=== PATIENT | female | born 1965 | race Caucasian/White ===

== ENCOUNTER → 2016-12-26 | Outpatient (REF) | payer OTHER | END | disposition home or self-care (01) | LOC: M LAB REF 15:27 | PROVIDERS: ATTEND Family Medicine | DX: R30.0 Dysuria (principal) ==

== ENCOUNTER → 2016-12-30 | Outpatient (RCR) | payer OTHER | LOC: M PT 12-18 14:26 → EDSTATUS 12-18 14:30 → M PT 12-18 14:35 | PROVIDERS: ATTEND Family Medicine | DX: Z51.89 Encounter for other specified aftercare (principal); R20.2 Paresthesia of skin; M54.2 Cervicalgia; M54.5 Low back pain ==

== ENCOUNTER → 2017-01-16 | Outpatient (REF) | payer OTHER | END | disposition home or self-care (01) | LOC: M LAB REF 16:57 | PROVIDERS: ATTEND Physician Assistant | DX: R30.0 Dysuria (principal) ==

== ENCOUNTER 2017-01-26 07:45 | Outpatient (RCR) | payer OTHER | END 2017-01-27 | LOC: M PT 07:45 | PROVIDERS: ATTEND Family Medicine | DX: Z51.89 Encounter for other specified aftercare (principal); M54.2 Cervicalgia; M54.5 Low back pain ==

== ENCOUNTER 2017-02-02 07:00 | Outpatient (RCR) | payer OTHER | END 2017-02-05 19:02 | disposition home or self-care (01) | LOC: M PT 07:00 | PROVIDERS: ATTEND Family Medicine | DX: Z51.89 Encounter for other specified aftercare (principal); M54.2 Cervicalgia ==

== ENCOUNTER → 2017-02-06 | Outpatient (REF) | payer OTHER | LOC: M SMT 16:50 | PROVIDERS: ATTEND Urology | DX: R30.0 Dysuria (principal) ==

== ENCOUNTER → 2017-04-07 | Outpatient (REF) | payer OTHER | LOC: M SMT 14:20 | PROVIDERS: ATTEND Urology | DX: R30.0 Dysuria (principal) ==

== ENCOUNTER → 2017-07-22 | Outpatient (REF) | payer OTHER | LOC: M LAB REF 08:46 | PROVIDERS: ATTEND Physician Assistant | DX: R30.0 Dysuria (principal) ==

== ENCOUNTER → 2017-09-04 | Outpatient (REF) | payer OTHER | LOC: M SFHCWAGY 11:03 | PROVIDERS: ATTEND Nurse Practitioner Family | DX: Z12.4 Encounter for screening for malignant neoplasm of cervix (principal) ==

== ENCOUNTER → 2017-09-04 | Outpatient (CLI) | payer OTHER ==
--- NOTE | 2017-09-04 09:38 | REP ---
Bilateral screening digital mammogram: There are no palpable abnormalities or other breast complaints. The patient states she had a clinical breast exam in August 2017. Comparisons are 01/30/2010, 06/09/2013 and 07/30/2015. There is very dense heterogeneous breast parenchyma, unchanged. There is a stable nodule -like density medially in the left breast on the CC view only, unchanged from 06/09/2013. There are benign calcifications. There has been no interval development of masses, areas of structural distortion or clusters of microcalcifications typical of malignancy. Impression: There is no evidence of malignancy. BIRADS category II benign findings. The patient should have a repeat mammogram in 1 year. This mammogram was interpreted with the aid of an FDA-approved computer-aided detection system. A. Negative x-ray reports should not delay biopsy if a dominant or clinically suspicious mass is present. B. Four to eight percent of cancers are not identified by x-ray. C. Adenosis and dense breasts may obscure an underlying neoplasm. The patient letter being requested is M1 dense.
== END ==
LOC: M WHC 07:53
PROVIDERS: ATTEND Nurse Practitioner Family
DX: Z12.31 Encounter for screening mammogram for malignant neoplasm of breast (principal)

== ENCOUNTER 2017-12-07 07:44 | Outpatient (RCR) | payer OTHER | END 2017-12-30 | disposition home or self-care (01) | LOC: M PT 07:44 | DX: Z51.89 Encounter for other specified aftercare (principal); M54.5 Low back pain ==

== ENCOUNTER → 2018-01-25 | Outpatient (CLI) | payer OTHER ==
[2018-01-25 08:17] LABS: BASO % 0.6 % (0.0-1.0); EOS # 0.1 10^3/uL (0.0-0.50); EOS % 2.3 % (0.0-3.0); HEMATOCRIT 39.1 % (36.0-47.0); HEMOGLOBIN 13.1 g/dl (12.0-16.0); IMMATURE GRANULOCYTE % 0.3 % (0-3.0); LYMPH # 2.5 10^3/uL (1.5-4.5); LYMPH % 40.1 % (24.0-44.0); MEAN CORPUSCULAR HEMOGLOBIN 30.8 pg (27.0-33.0); MEAN CORPUSCULAR HGB CONC 33.5 g/dl (32.0-36.5); MEAN CORPUSCULAR VOLUME 91.8 fl (80.0-96.0); MONO # 0.5 10^3/uL (0.0-0.8); MONO % 7.5 % (0.0-5.0); NEUTROPHILS % 49.2 % (36.0-66.0); PLATELET COUNT, AUTOMATED 217 10^3/uL (150-450); RED BLOOD COUNT 4.26 10^6/uL (4.00-5.40); RED CELL DISTRIBUTION WIDTH 12.5 % (11.5-14.5); WHITE BLOOD COUNT 6.2 10^3/uL (4.0-10.0)
[2018-01-25 08:48] LABS: ALBUMIN 3.9 GM/DL (3.2-5.2); ALBUMIN/GLOBULIN RATIO 1.44 (1.00-1.93); ALKALINE PHOSPHATASE 53 U/L (45-117); ALT/SGPT 23 U/L (12-78); ANION GAP 7 MEQ/L (8-16); AST/SGOT 13 U/L (7-37); BILIRUBIN,TOTAL 0.4 MG/DL (0.2-1.0); BLOOD UREA NITROGEN 14 MG/DL (7-18); CALCIUM LEVEL 8.5 MG/DL (8.5-10.1); CARBON DIOXIDE LEVEL 30 MEQ/L (21-32); CHLORIDE LEVEL 107 MEQ/L (98-107); CHOLESTEROL LEVEL 182 MG/DL (<200); CHOLESTEROL RISK RATIO 2.141 (<5); CREATININE FOR GFR 0.68 MG/DL (0.55-1.30); FREE T4 0.88 NG/DL (0.76-1.46); GLOMERULAR FILTRATION RATE > 60.0 (>51); GLUCOSE, FASTING 103 MG/DL (70-100); HDL CHOLESTEROL 85 MG/DL (>40); LDL CHOLESTEROL 87.8 MG/DL (<100); NON-HDL-C 97 MG/DL; POTASSIUM SERUM 3.9 MEQ/L (3.5-5.1); SODIUM LEVEL 144 MEQ/L (136-145); TOTAL PROTEIN 6.6 GM/DL (6.4-8.2); TRIGLYCERIDES LEVEL 46 MG/DL (<150)
== END ==
LOC: M LAB 07:53
DX: Z13.29 Encounter for screening for other suspected endocrine disorder (principal); Z13.220 Encounter for screening for lipoid disorders; Z13.0 Encounter for screening for diseases of the blood and blood-forming organs and certain disorders involving the immune mechanism

== ENCOUNTER → 2018-03-19 | Outpatient (REF) | payer OTHER | LOC: M LAB REF 13:02 | DX: R30.0 Dysuria (principal) ==

== ENCOUNTER → 2018-08-19 | Outpatient (REF) | payer OTHER | LOC: M LAB REF 17:44 | DX: N39.0 Urinary tract infection, site not specified (principal) ==

== ENCOUNTER → 2018-09-09 | Outpatient (CLI) | payer OTHER | LOC: M WHC 08:01 | DX: Z12.31 Encounter for screening mammogram for malignant neoplasm of breast (principal); N60.31 Fibrosclerosis of right breast; N60.32 Fibrosclerosis of left breast | CPT/HCPCS: G0123 ==

== ENCOUNTER → 2018-09-09 | Outpatient (REF) | payer OTHER ==
[2018-09-11 14:11] LABS: HPV HYBRID CAPTURE II Negative (Negative)
== END ==
LOC: M SFHCWAGY 08:36
DX: Z12.4 Encounter for screening for malignant neoplasm of cervix (principal)

== ENCOUNTER → 2018-09-20 | Outpatient (REF) | payer OTHER | LOC: M LAB REF 18:20 | DX: L57.0 Actinic keratosis (principal) | CPT/HCPCS: 88305 ==

== ENCOUNTER → 2018-12-17 | Outpatient (CLI) | payer OTHER ==
[2018-12-17 07:40] LABS: BASO # 0.1 10^3/uL (0.0-0.2); BASO % 0.8 % (0.0-1.0); EOS # 0.1 10^3/uL (0.0-0.50); EOS % 1.6 % (0.0-3.0); HEMATOCRIT 40.1 % (36.0-47.0); HEMOGLOBIN 13.3 g/dl (12.0-15.5); LYMPH # 2.1 10^3/uL (1.5-4.5); MEAN CORPUSCULAR HEMOGLOBIN 31.1 pg (27.0-33.0); MEAN CORPUSCULAR HGB CONC 33.2 g/dl (32.0-36.5); MEAN CORPUSCULAR VOLUME 93.9 fl (80.0-96.0); MONO # 0.5 10^3/uL (0.0-0.8); MONO % 6.9 % (0.0-5.0); NEUTROPHILS # 4.3 10^3/uL (1.8-7.7); NEUTROPHILS % 61.4 % (36.0-66.0); PLATELET COUNT, AUTOMATED 243 10^3/uL (150-450); RED BLOOD COUNT 4.27 10^6/uL (4.00-5.40); WHITE BLOOD COUNT 7.1 10^3/uL (4.0-10.0)
[2018-12-17 09:00] LABS: ALT/SGPT 29 U/L (12-78); BILIRUBIN,TOTAL 0.4 MG/DL (0.2-1.0); BLOOD UREA NITROGEN 11 MG/DL (7-18); CALCIUM LEVEL 9.2 MG/DL (8.5-10.1); CARBON DIOXIDE LEVEL 28 MEQ/L (21-32); CHLORIDE LEVEL 108 MEQ/L (98-107); CHOLESTEROL LEVEL 190 MG/DL (<200); CHOLESTEROL RISK RATIO 2.087 (<5); CREATININE FOR GFR 0.63 MG/DL (0.55-1.30); FREE T4 1.01 NG/DL (0.76-1.46); GLOMERULAR FILTRATION RATE > 60.0 (>51); GLUCOSE, FASTING 101 MG/DL (70-100); HDL CHOLESTEROL 91 MG/DL (>40); LDL CHOLESTEROL 90 MG/DL (<100); NON-HDL-C 99 MG/DL; POTASSIUM SERUM 3.9 MEQ/L (3.5-5.1); SODIUM LEVEL 143 MEQ/L (136-145); TOTAL PROTEIN 6.7 GM/DL (6.4-8.2); TRIGLYCERIDES LEVEL 44 MG/DL (<150)
== END ==
LOC: M LAB 07:05
PROVIDERS: ATTEND Family Medicine
DX: Z13.0 Encounter for screening for diseases of the blood and blood-forming organs and certain disorders involving the immune mechanism (principal); Z13.220 Encounter for screening for lipoid disorders; Z13.29 Encounter for screening for other suspected endocrine disorder

== ENCOUNTER → 2019-07-08 | Outpatient (CLI) | payer OTHER ==
[2019-07-08 08:16] LABS: HEMATOCRIT 40.8 % (36.0-47.0); HEMOGLOBIN 13.5 g/dl (12.0-15.5); MEAN CORPUSCULAR HEMOGLOBIN 30.9 pg (27.0-33.0); MEAN CORPUSCULAR HGB CONC 33.1 g/dl (32.0-36.5); MEAN CORPUSCULAR VOLUME 93.4 fl (80.0-96.0); PLATELET COUNT, AUTOMATED 248 10^3/uL (150-450); RED BLOOD COUNT 4.37 10^6/uL (4.00-5.40); WHITE BLOOD COUNT 7.5 10^3/uL (4.0-10.0)
[2019-07-08 08:34] LABS: BLOOD UREA NITROGEN 17 MG/DL (7-18); C REACTIVE PROTEIN QUANTITATIV < 0.30 MG/DL (0.00-0.30); CALCIUM LEVEL 9.1 MG/DL (8.5-10.1); CARBON DIOXIDE LEVEL 28 MEQ/L (21-32); CHLORIDE LEVEL 108 MEQ/L (98-107); CREATININE FOR GFR 0.69 MG/DL (0.55-1.30); GLOMERULAR FILTRATION RATE > 60.0 (>51); GLUCOSE, FASTING 82 MG/DL (70-100); MAGNESIUM LEVEL 2.1 MG/DL (1.8-2.4); POTASSIUM SERUM 3.9 MEQ/L (3.5-5.1); SODIUM LEVEL 143 MEQ/L (136-145)
[2019-07-08 09:06] LABS: ERYTHROCYTE SEDIMENTATION RATE 3 mm/hr (0-30)
[2019-07-08 12:39] LABS: TOTAL 25(OH) VITAMIN D 67.3 NG/ML (30.0-100.0)
[2019-07-08 12:40] LABS: VITAMIN B12 LEVEL 492 PG/ML (247-911)
== END ==
LOC: M LAB 06:51
PROVIDERS: ATTEND Nurse Practitioner
DX: K92.1 Melena (principal)

== ENCOUNTER → 2019-09-12 | Outpatient (CLI) | payer OTHER ==
--- NOTE | 2019-09-12 10:39 | REPMRS ---
Patient History The patient states she had a clinical breast exam in 08/2019. Patient is postmenopausal. Family history of breast cancer under age 50 in maternal aunt, colorectal cancer at age 50 or over in maternal uncle, breast cancer at age 50 or over in maternal cousin, pancreatic cancer at age 50 or over in brother. Benign cyst aspiration of the left breast, 2009. Benign excisional biopsy of the right breast, 1996. Taking estrogen for 7 years. Taking progesterone for 7 years. Digital Woman Screen Mammo: September 12, 2019 - Exam #: [id number] Bilateral CC and MLO view(s) were taken. Technologist: Anne Pisano, Technologist Prior study comparison: September 09, 2018, bilateral digital woman screen mammo performed at [facility]. September 04, 2017, digital woman screen mammo performed at [facility]. August 01, 2016, digital woman screen mammo performed at [facility]. FINDINGS: The breast tissue is heterogeneously dense. This may lower the sensitivity of mammography. There is a moderate amount of heterogeneously dense fibroglandular tissue which is fairly symmetric. There is no interval development of dominant mass, architectural distortion, or grouped microcalcification typical of malignancy. There has been no change in the appearance of the mammogram from the prior studies. 3-D tomosynthesis shows no additional findings. Assessment: BI-RADS/ACR category 1 mammogram. Negative Mammogram. Recommendation Routine screening mammogram of both breasts in 1 year (for women over age 40). This patient's Lifetime Breast Cancer RIsk is estimated at 10.6 %. This mammogram was interpreted with the aid of an FDA-approved computer-aided dectection system. Electronically Signed By: Socrates Fitzgerald MD 09/12/19 9744
== END ==
LOC: M WHC 08:03
PROVIDERS: ATTEND Nurse Practitioner Family
DX: Z12.31 Encounter for screening mammogram for malignant neoplasm of breast (principal); Z78.0 Asymptomatic menopausal state; Z90.49 Acquired absence of other specified parts of digestive tract
CPT/HCPCS: 77063; 77067; G0463

== ENCOUNTER → 2019-10-03 | Outpatient (REF) | payer OTHER | LOC: M SFHCPLAZ 13:08 | PROVIDERS: ATTEND Dermatology | DX: D49.2 Neoplasm of unspecified behavior of bone, soft tissue, and skin (principal) ==

== ENCOUNTER → 2019-12-26 | Outpatient (CLI) | payer OTHER ==
[2019-12-26 07:07] LABS: BASO # 0.1 10^3/uL (0.0-0.2); BASO % 1.1 % (0.0-1.0); EOS # 0.2 10^3/uL (0.0-0.5); EOS % 4.4 % (0.0-3.0); HEMATOCRIT 39.8 % (36.0-47.0); HEMOGLOBIN 13.2 g/dl (12.0-15.5); LYMPH % 36.2 % (24.0-44.0); MEAN CORPUSCULAR HEMOGLOBIN 31.4 pg (27.0-33.0); MEAN CORPUSCULAR HGB CONC 33.2 g/dl (32.0-36.5); MEAN CORPUSCULAR VOLUME 94.8 fl (80.0-96.0); MONO # 0.4 10^3/uL (0.0-0.8); MONO % 7.5 % (0.0-5.0); NEUTROPHILS # 2.8 10^3/uL (1.5-8.5); NEUTROPHILS % 50.6 % (36.0-66.0); PLATELET COUNT, AUTOMATED 199 10^3/uL (150-450); WHITE BLOOD COUNT 5.5 10^3/uL (4.0-10.0)
--- NOTE | 2019-12-26 07:36 | REP ---
Clinical: Nontraumatic bilateral hip pain. Technique: Frontal view of the pelvis with neutral and frog lateral views of the right and left hip. Findings: Osseous structures and joint spaces are intact, and normal. Hip joints appear symmetric on frontal pelvic radiograph. No acute fracture or dislocation. No evidence for healed injury. No significant degenerative or congenital abnormalities are appreciated. Surrounding soft tissues are unremarkable. Incidental phleboliths noted in the pelvis. Impression: Normal pelvis and age-appropriate bilateral hip series. Electronically Signed by Gian Stephens MD 12/26/2019 07:28 A
[2019-12-26 07:45] LABS: ALBUMIN 3.8 GM/DL (3.2-5.2); ALT/SGPT 36 U/L (12-78); BILIRUBIN,TOTAL 0.4 MG/DL (0.2-1.0); BLOOD UREA NITROGEN 9 MG/DL (7-18); CALCIUM LEVEL 8.8 MG/DL (8.5-10.1); CARBON DIOXIDE LEVEL 30 MEQ/L (21-32); CHLORIDE LEVEL 109 MEQ/L (98-107); CHOLESTEROL LEVEL 186 MG/DL (<200); CREATININE FOR GFR 0.72 MG/DL (0.55-1.30); FREE T4 0.79 NG/DL (0.76-1.46); GLOMERULAR FILTRATION RATE > 60.0 (>51); GLUCOSE, FASTING 88 MG/DL (70-100); HDL CHOLESTEROL 75 MG/DL (>40); LDL CHOLESTEROL 95 MG/DL (<100); NON-HDL-C 111 MG/DL; POTASSIUM SERUM 4.1 MEQ/L (3.5-5.1); SODIUM LEVEL 144 MEQ/L (136-145); TOTAL PROTEIN 6.6 GM/DL (6.4-8.2); TRIGLYCERIDES LEVEL 78 MG/DL (<150)
== END ==
LOC: M LAB 06:42
PROVIDERS: ATTEND Family Medicine
DX: M25.551 Pain in right hip (principal)

== ENCOUNTER → 2020-09-06 | Outpatient (CLI) | payer OTHER ==
--- NOTE | 2020-09-11 07:26 | REP ---
KUB: 2-VIEWS HISTORY: Fecal urgency. FINDINGS: Air and stool are seen in a nondistended colon. No evidence of obstipation or fecal impaction. Flank stripes and psoas margins are intact. No small bowel dilation is seen. There are phleboliths in the pelvis bilaterally. No other pathologic calcification is seen. No mass or organomegaly is seen. No significant bony abnormality. IMPRESSION: Negative KUB. MTDD
--- NOTE | 2020-09-11 07:27 | REP ---
RIGHT ELBOW SERIES: 4-VIEWS HISTORY: Medial epicondylitis. FINDINGS: Four views of the right elbow demonstrate normal alignment of the ulnotrochlear and radiocapitellar articulation. There is no evidence of joint effusion. No erosive change is seen. Periarticular soft tissues are unremarkable. IMPRESSION: Negative radiographs of the right elbow. MTDD
--- NOTE | 2020-09-11 07:30 | REP ---
HISTORY: Primary osteoarthritis left hand. FINDINGS: Four views of the left hand demonstrate mild osteopenia, diffuse. There is moderate osteoarthritis at the first carpometacarpal articulation with fragmented spurring, minimal sclerosis, and joint space narrowing. No erosive changes are seen. Joint spaces are otherwise preserved. IMPRESSION: Moderate osteoarthritis first carpometacarpal articulation. Diffuse osteopenia. MTDD
== END ==
LOC: M RAD 16:21
PROVIDERS: ATTEND Family Medicine
DX: R15.2 Fecal urgency (principal); M77.01 Medial epicondylitis, right elbow; M19.042 Primary osteoarthritis, left hand

== ENCOUNTER → 2020-09-13 | Outpatient (CLI) | payer OTHER ==
--- NOTE | 2020-09-13 10:26 | REPMRS ---
Patient History The patient states she had a clinical breast exam in 08/2020. Patient is postmenopausal. Family history of breast cancer under age 50 in maternal aunt, colorectal cancer at age 50 or over in maternal uncle, breast cancer at age 50 or over in maternal cousin, pancreatic cancer at age 50 or over in brother. Benign cyst aspiration of the left breast, 2009. Benign excisional biopsy of the right breast, 1996. Taking estrogen for 8 years. Taking progesterone for 8 years. Digital Woman Screen Mammo: September 13, 2020 - Exam #: [id number] Bilateral CC and MLO view(s) were taken. Technologist: Anne Pisano, Technologist Prior study comparison: September 12, 2019, bilateral digital woman screen mammo performed at [facility]. September 09, 2018, bilateral digital woman screen mammo performed at [facility]. September 04, 2017, digital woman screen mammo performed at [facility]. FINDINGS: The breast tissue is heterogeneously dense. This may lower the sensitivity of mammography. The Volpara volumetric breast density category is: C. There is a moderate amount of heterogeneously dense fibroglandular tissue which is fairly symmetric. There is no interval development of dominant mass, architectural distortion, or grouped microcalcification typical of malignancy. There has been no change in the appearance of the mammogram from the prior studies. 3-D tomosynthesis shows no additional findings. Assessment: BI-RADS/ACR category 1 mammogram. Negative Mammogram. Recommendation Routine screening mammogram of both breasts in 1 year (for women over age 40). This patient's Lifetime Breast Cancer RIsk is estimated at 10.4 %. This mammogram was interpreted with the aid of an FDA-approved computer-aided dectection system. Electronically Signed By: Socrates Fitzgerald MD 09/13/20 [id number]
== END ==
LOC: M WHC 07:50
PROVIDERS: ATTEND Nurse Practitioner Family
DX: Z12.31 Encounter for screening mammogram for malignant neoplasm of breast (principal); Z80.3 Family history of malignant neoplasm of breast; Z80.0 Family history of malignant neoplasm of digestive organs
CPT/HCPCS: 77063; 77067; 87624; G0123; G0463

== ENCOUNTER → 2020-09-13 | Outpatient (REF) | payer OTHER | LOC: M SFHCWAGY 13:09 | PROVIDERS: ATTEND Nurse Practitioner Family | DX: Z12.4 Encounter for screening for malignant neoplasm of cervix (principal); Z77.9 Other contact with and (suspected) exposures hazardous to health | CPT/HCPCS: 87624; G0123 ==

== ENCOUNTER → 2020-10-23 | Outpatient (CLI) | payer OTHER ==
[2020-10-23 16:09] LABS: HEMATOCRIT 39.4 % (36.0-47.0); HEMOGLOBIN 12.9 g/dl (12.0-15.5); MEAN CORPUSCULAR HEMOGLOBIN 31.2 pg (27.0-33.0); MEAN CORPUSCULAR HGB CONC 32.7 g/dl (32.0-36.5); MEAN CORPUSCULAR VOLUME 95.2 fl (80.0-96.0); PLATELET COUNT, AUTOMATED 240 10^3/uL (150-450); RED BLOOD COUNT 4.14 10^6/uL (4.00-5.40); WHITE BLOOD COUNT 7.2 10^3/uL (4.0-10.0)
[2020-10-23 16:34] LABS: ALBUMIN 3.9 GM/DL (3.2-5.2); ALT/SGPT 59 U/L (12-78); BILIRUBIN,TOTAL 0.4 MG/DL (0.2-1.0); BLOOD UREA NITROGEN 12 MG/DL (7-18); CALCIUM LEVEL 9.2 MG/DL (8.5-10.1); CARBON DIOXIDE LEVEL 30 MEQ/L (21-32); CHLORIDE LEVEL 107 MEQ/L (98-107); CREATININE FOR GFR 0.71 MG/DL (0.55-1.30); GLOMERULAR FILTRATION RATE > 60.0 (>51); GLUCOSE, FASTING 85 MG/DL (70-100); POTASSIUM SERUM 3.8 MEQ/L (3.5-5.1); SODIUM LEVEL 141 MEQ/L (136-145); TOTAL PROTEIN 6.7 GM/DL (6.4-8.2)
[2020-10-23 16:43] LABS: ERYTHROCYTE SEDIMENTATION RATE 6 mm/hr (0-30)
== END ==
LOC: M LAB 15:14
PROVIDERS: ATTEND Nurse Practitioner Family
DX: K50.00 Crohn's disease of small intestine without complications (principal)

== ENCOUNTER → 2021-01-08 | Outpatient (CLI) | payer OTHER ==
--- NOTE | 2021-01-08 09:25 | REPVR ---
PROCEDURE INFORMATION: Exam: MR Lumbar Spine Without Contrast. Exam date and time: 01/08/2021 8:47 AM Age: 55 years old Clinical indication: Low back pain; Additional info: Localized swelling, mass TECHNIQUE: Imaging protocol: Multiplanar magnetic resonance images of the lumbar spine without intravenous contrast. COMPARISON: CR Spine,LS wBENDING MIN 6 VIEWS 08/22/2016 7:13 AM FINDINGS: Vertebrae: There is no fracture or listhesis. Slight heterogeneity of marrow likely reflects age-related marrow conversion. Spinal cord: Normal signal. No cord compression. L1-L2: There is shallow disc bulging. There is mild facet hypertrophy. The spinal canal and neural foramina are patent. L2-L3: There is shallow disc bulging. There is mild facet and ligamentous hypertrophy. The spinal canal and neural foramina are patent. L3-L4: There is shallow disc bulging. There is mild facet and ligamentous hypertrophy. The spinal canal and neural foramina are patent. L4-L5: There is shallow disc bulging. There is moderate facet and ligamentous hypertrophy. There is mild bilateral neural foraminal narrowing. L5-S1: There is diffuse disc bulging asymmetric to the left. There is nmoa-[id number] facet hypertrophy. There is moderate left neural foraminal narrowing. Soft tissues: Unremarkable. IMPRESSION: Degenerative disc disease and spondylosis. At L5/S1, disc bulge asymmetric to the left and facet hypertrophy contribute to moderate left neural foraminal narrowing. Electronically signed by: Alejandrina Clemens On 01/08/2021 09:25:26 AM
--- NOTE | 2021-01-08 09:31 | REP ---
INDICATION: LOCALIZED SWELLING, MASS. Low back pain. Localized swelling, mass and lump right and left lower limb. COMPARISON: None. TECHNIQUE: Coronal T1 and fat sat T2 images of both hips and the pelvis are acquired. Higher resolution smaller [id number]-[id number] axial, coronal and sagittal images are obtained of both hips with T2 fat sat sequences. FINDINGS: Cortical and medullary bone signal intensity are normal in the proximal femurs bilaterally. There is no evidence of avascular necrosis. The bony pelvic ring appears intact on T1 and T2 weighted scans. No pelvic or sacral lesion is seen. SI joints are unremarkable. Symphysis pubis is normal. No evidence of hip joint effusion is seen on either side. T2 weighted scans demonstrate mild T2 hyperintensity adjacent to the greater trochanters on both sides consistent with tendinitis. No bursal fluid collection is evident. The hamstring tendon insertions are intact bilaterally. T2 weighted scans show minimal T2 hyperintensity adjacent to the proximal hamstring tendon insertions on both sides. This may reflect mild tendinitis. Ligamentum teres appear intact bilaterally. There is no evidence of acetabular labral cartilage tear. Head neck junction morphology is normal bilaterally. The ischial femoral space is not compromised on either side. There is a small multiloculated ganglion cyst posterior and medial to the caudal aspect of the left hip joint. This measures 4 mm in greatest thickness. No other cyst or mass is seen. Skeletal muscle signal intensity is otherwise normal. No intrapelvic mass or adenopathy is observed. No free fluid is seen. No abdominal wall defect is observed. There are 2 small fibroids in the uterine fundus, the largest of which measures 10 mm. Scan is otherwise unremarkable. IMPRESSION: Subtle areas of T2 hyperintensity adjacent to each greater trochanter and adjacent to each proximal hamstring tendon insertion may reflect mild areas of tendinitis. There is a tiny ganglion cyst at the posteromedial aspect of the left hip joint capsule. Small uterine fibroids. Otherwise negative. <Electronically signed by oScrates Fitzgerald > 01/08/21 0676
== END ==
LOC: M RAD 06:53
PROVIDERS: ATTEND Plastic Surgery Surgery of the Hand
DX: M67.452 Ganglion, left hip (principal); D25.9 Leiomyoma of uterus, unspecified; M51.36 Other intervertebral disc degeneration, lumbar region; M51.37 Other intervertebral disc degeneration, lumbosacral region; M47.817 Spondylosis without myelopathy or radiculopathy, lumbosacral region; M51.26 Other intervertebral disc displacement, lumbar region; M51.27 Other intervertebral disc displacement, lumbosacral region; R22.41 Localized swelling, mass and lump, right lower limb; R22.42 Localized swelling, mass and lump, left lower limb; M54.5 Low back pain

== ENCOUNTER → 2021-01-09 | Outpatient (CLI) | payer OTHER ==
--- NOTE | 2021-01-09 09:58 | REP ---
INDICATION: LOCALIZED SWELLING, MASS AND LUMP RT AND LEFT LOWER LIMB. Weakness bilateral legs and hips. Bilateral lower extremity and low back pain. Swelling. COMPARISON: No comparison femur imaging.. TECHNIQUE: Axial, coronal and sagittal imaging planes utilized. T1 and T2 weighted scans are obtained with and without fat saturation in the usual fashion. FINDINGS: Cortical and medullary bone signal intensity is normal throughout the left femur. No medullary or cortical bone lesion is seen. T2 weighted scans at the hip again demonstrate the small ganglion cyst at along the inferior medial aspect of the left hip joint as described in the MRI study of the hip. Minimal T2 hyperintensity is seen in the tissues adjacent to the hamstring tendon insertion. This may reflect mild tendinitis. No other soft tissue abnormality is seen. There is no evidence of significant joint effusion at the knee. Skeletal muscle signal intensity and myofascial interfaces are normal. No vascular abnormality is seen. No mass lesion is observed. Study is otherwise unremarkable. IMPRESSION: Small ganglion cyst at the left hip and question tendinitis changes adjacent to the hamstring tendon insertion. Otherwise negative MRI study of the left femur. <Electronically signed by Socrates Fitzgerald > 01/09/21 0515
--- NOTE | 2021-01-09 10:08 | REP ---
INDICATION: MASS. Bilateral lower extremity pain weakness and swelling. COMPARISON: No comparison right femur imaging.. TECHNIQUE: Axial, coronal, and sagittal imaging planes utilized. T1 and T2 weighted scans are obtained in the usual fashion with and without fat saturation. FINDINGS: Cortical and medullary bone signal intensity are normal in the right femur. No evidence of joint effusion is seen at the hip or the knee. No vascular abnormality is seen. No medullary canal or cortical lesion is seen. There is some T2 hyperintense soft tissue edema at the greater trochanter soft tissues on the right which may reflect mild tendinitis. There is very subtle edema in the quadratus femora is muscle adjacent to the proximal hamstring insertion as well as seen on yesterday's hip MRI. No other soft tissue abnormality is seen. No mass is seen. Skeletal muscle signal intensity is otherwise normal. IMPRESSION: Mild changes consistent with tendinitis at the greater trochanter and adjacent to the proximal hamstring tendon insertion. Otherwise negative. <Electronically signed by Socrates Fitzgerald > 01/09/21 [id number]
== END ==
LOC: M RAD 07:09
PROVIDERS: ATTEND Plastic Surgery Surgery of the Hand
DX: M67.452 Ganglion, left hip (principal); R22.43 Localized swelling, mass and lump, lower limb, bilateral; M54.5 Low back pain

== ENCOUNTER → 2021-01-10 | Outpatient (CLI) | payer OTHER ==
[2021-01-10 07:12] LABS: BASO % 0.7 % (0.0-1.0); EOS # 0.3 10^3/uL (0.0-0.5); EOS % 4.2 % (0.0-3.0); HEMATOCRIT 39.9 % (36.0-47.0); HEMOGLOBIN 12.8 g/dl (12.0-15.5); LYMPH # 2.7 10^3/uL (1.5-5.0); LYMPH % 45.9 % (24.0-44.0); MEAN CORPUSCULAR HEMOGLOBIN 30.3 pg (27.0-33.0); MEAN CORPUSCULAR HGB CONC 32.1 g/dl (32.0-36.5); MEAN CORPUSCULAR VOLUME 94.5 fl (80.0-96.0); MONO # 0.4 10^3/uL (0.0-0.8); MONO % 6.9 % (0.0-5.0); NEUTROPHILS # 2.5 10^3/uL (1.5-8.5); PLATELET COUNT, AUTOMATED 223 10^3/uL (150-450); RED BLOOD COUNT 4.22 10^6/uL (4.00-5.40)
[2021-01-10 07:49] LABS: ALBUMIN 3.8 GM/DL (3.2-5.2); ALT/SGPT 31 U/L (12-78); BILIRUBIN,TOTAL 0.4 MG/DL (0.2-1.0); BLOOD UREA NITROGEN 14 MG/DL (7-18); CALCIUM LEVEL 9.3 MG/DL (8.5-10.1); CARBON DIOXIDE LEVEL 33 MEQ/L (21-32); CHLORIDE LEVEL 107 MEQ/L (98-107); CHOLESTEROL LEVEL 189 MG/DL (<200); CHOLESTEROL RISK RATIO 3.048 (<5); CREATININE FOR GFR 0.66 MG/DL (0.55-1.30); FREE T4 0.84 NG/DL (0.76-1.46); GLOMERULAR FILTRATION RATE > 60.0 (>51); GLUCOSE, FASTING 86 MG/DL (70-100); HDL CHOLESTEROL 62 MG/DL (>40); LDL CHOLESTEROL 116 MG/DL (<100); NON-HDL-C 127 MG/DL; POTASSIUM SERUM 3.9 MEQ/L (3.5-5.1); SODIUM LEVEL 144 MEQ/L (136-145); TOTAL PROTEIN 6.8 GM/DL (6.4-8.2); TRIGLYCERIDES LEVEL 56 MG/DL (<150)
[2021-01-10 09:11] LABS: TOTAL 25(OH) VITAMIN D 65.2 NG/ML (30.0-100.0)
== END ==
LOC: M LAB 06:46
PROVIDERS: ATTEND Family Medicine
DX: E55.9 Vitamin D deficiency, unspecified (principal); Z13.0 Encounter for screening for diseases of the blood and blood-forming organs and certain disorders involving the immune mechanism; Z13.29 Encounter for screening for other suspected endocrine disorder; Z13.220 Encounter for screening for lipoid disorders

== ENCOUNTER 2021-01-23 07:15 | Outpatient (RCR) | payer OTHER | END 2021-01-27 | LOC: M PT 07:15 | PROVIDERS: ATTEND Family Medicine | DX: M51.86 Other intervertebral disc disorders, lumbar region (principal); M46.1 Sacroiliitis, not elsewhere classified ==

== ENCOUNTER → 2021-02-05 | Outpatient (CLI) | payer OTHER ==
--- NOTE | 2021-02-09 00:23 | ECWPNPC ---
PATIENT NAME: JAYDE METCALF : 1965 GENDER: FEMALE VISIT DATE: 02/05/2021 DISCHARGE DATE: 02/05/21902 VISIT LOCKED DATE TIME: PHYSICIAN: MAGALY HAHN RESOURCE: MAGALY HAHN REASON FOR APPOINTMENT 1. DEGENERATIVE DISC DISEASE AND ASYMMETRIC BULGING DISC HISTORY OF PRESENT ILLNESS DEPRESSION SCREENING: PHQ-2 (2015 EDITION) LITTLE INTEREST OR PLEASURE IN DOING THINGS?NOT AT ALL FEELING DOWN, DEPRESSED, OR HOPELESS?NOT AT ALL TOTAL SCORE0 GENERAL: JAYDE IS A 55-YEAR-OLD FEMALE REFERRED BY PRIMARY CARE TO EVALUATE CHRONIC LOW BACK PAIN. PATIENT REPORTS SEVERAL YEARS OF LOW BACK PAIN. OVER THE PAST YEAR THIS HAS GOTTEN WORSE. REPORTING STIFFNESS IN HER HIPS AND LEGS/THIGHS. STATES THEY FEEL WEAK. HISTORY OF CROHN'S DISEASE. REPORTING GENERALIZED JOINT PAIN. REPORTS THE PAIN IS CONSTANT. REPORTING NIGHTTIME AWAKENINGS DUE TO PAIN. REPORTING NORMAL BOWEL MOVEMENTS AND URINATION. NO RECENT ILLNESS OR SUDDEN WEIGHT LOSS. DENIES SADDLE PARESTHESIAS. REVIEWED MRI OF THE LS-SPINE AND DISCUSSED TREATMENT OPTIONS.- - -. FALL RISK SCREENING: SCREENING : NO FALLS REPORTED IN THE LAST YEAR , : NO FALLS REPORTED IN THE LAST YEAR. PAIN SCREENING: PATIENT HAS A COMPLAINT OF ACUTE OR CHRONIC PAIN :YES LOCATION OF PAIN:LOW BACK INTENSITY OF PAIN (SCALE OF 1 TO 10):8 WHAT DOES YOUR PAIN FEEL LIKE:ACHING, BURNING, SHARP, STABBING, THROBBING, SHOOTING DURATION:CONTINOUS, CONSTANT, ALL DAY PAIN IS INCREASED BY:ACTIVITIES PAIN IS DECREASED BY:USE OF PAIN MEDICATIONS, OTHERS HEAT PACK NURSING NOTE: - - -. PAIN CENTER INTAKE QUESTIONS: DO YOU HAVE A HISTORY OF MRSA? :NO DO YOU TAKE A BLOOD THINNERS? :NO DO YOU HAVE ANY BLEEDING DISORDERS? :NO ANY NEW NUMBNESS OR WEAKNESS IN YOUR LEGS OR ARMS? :YES BOTH ARMS AND LEGS ANY PACEMAKER,DEFIBRILLATOR, OR DORSAL COLUMN STIMULATOR? :NO DO YOU HAVE ANY RASHES OR OPEN SORES? :NO ARE YOU ALLERGIC TO IV DYE? :NO ARE YOU DIABETIC? :NO ANY NEW PROBLEMS WITH YOUR MEDICATIONS? :NO HAVE YOU RECEIVED A VACCINE IN THE PAST 30 DAYS? :NO DO YOU PLAN TO RECEIVE A VACCINE IN THE NEXT 21 DAYS? :NO DO YOU NEED ANY PRESCRIPTION? :NO DO YOU TAKE ANY IMMUNOSUPPRESSIVE MEDICATIONS? :NO CURRENT MEDICATIONS TAKING CLARITIN 10 MG TABLET 1 TABLET ORALLY ONCE A DAY TAKING PENTASA 500 MG CAPSULE 2 CAP(S) P.O. FOUR TIMES DAILY TAKING MULTIVITAMINS OTC TABLET 1 TABLET P.O. ONCE A DAY TAKING ADVAIR HFA 230-21 MCG/ACT AEROSOL 2 PUFFS P.O. DAILY AND BIDPRN TAKING VITAMIN E 400 UNIT CAPSULE 1 CAPSULE P.O. NEEDED TAKING LIDODERM 5 % PATCH 1 PATCH TO INTACT SKIN REMOVE AFTER 12 HOURS EXTERNALLY ONCE A DAY TAKING CALCIUM 500 MG TABLET 1 TABLET P.O. TWICE A DAY TAKING MYRBETRIQ 50 MG TABLET 1 TABLET ORALLY DAILY TAKING OMEPRAZOLE 20 MG CAPSULE DELAYED RELEASE 1 CAPSULE ORALLY DAILY TAKING FLUOXETINE HCL 10 MG CAPSULE 1 CAPSULE ORALLY ONCE A DAY TAKING PROMETRIUM 100 MG CAPSULE TAKE 1 CAPSULE BY MOUTH ONCE DAILY AT BEDTIME TAKING PROMETRIUM 100 MG CAPSULE 1 CAPSULES AT BEDTIME ORALLY ONCE A DAY TAKING ESTRACE 0.5 MG TABLET 1 TABLET ORALLY DAILY TAKING ESTRACE 0.1 MG/GM CREAM 1 GM VAGINAL TWICE A WEEK AT HS TAKING DIFLUCAN 150 MG TABLET 1 TABLET ORALLY PRN YEAST INFECTION TAKING PYRIDIUM 200 MG TABLET 1 TABLET AFTER MEALS ORALLY THREE TIMES A DAY NEEDED FOR URINARY SYMPTOMS TAKING METAXALONE 800 MG TABLET 1 TABLET ORALLY ONCE A DAY NEEDED MEDICATION LIST REVIEWED AND RECONCILED WITH THE PATIENT PAST MEDICAL HISTORY GERD ALLERGIC RHINITIS POSTMENOPAUSE W/HRT BENIGN RECTAL POLYP 09/11 COLONOSCOPY FREQ CANDIDIASIS VULVOVAG FREQUENT UTI COLD SORES [employer] GENETIC TEST NEG 2018 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 LIFETIME BREAST CANCER RISK 13.6 % ASTHMA (RECHLIN) CHRONES ALLERGIES MACROBID: HIVES - ALLERGY CODEINE SULFATE: HIVES - ALLERGY SURGICAL HISTORY VOCAL NODULES 18 YO BUNIONECTOMY 1988 R BREAST LUMP EXCISION 1996 SKIN LESION REMOVAL 2008 COLONOSCOPY, EGD (Kumar CISNEROS MD) 09/16/132018 FAMILY HISTORY FATHER: 82 YRS, OF CA (?) AND CAD STOMACH MOTHER: 91 YRS, HTN, DDD, OSTEOPOROSIS, NO FX SIBLINGS: ALIVE, BROTHERS (3) - 1 AT 21 YO IN A MVA, 62 Y.O,. BROTHER FROM PANCREATIC CANCER AT 62 , ONE BROTHER WITH CAD SON(S): ALIVE DAUGHTER(S): ALIVE 19 YRS MATERNAL UNCLE: COLON CANCER IN HIS 60 MATERNAL AUNT: , FROM BRAIN ANEURYSM, HX BREAST CANCER IN HER 40'S DOUBLE MASTECTOMY 1 BROTHER(S) - HEALTHY. 2 SON(S) , 1 DAUGHTER(S) - HEALTHY. NEGATIVE FOR ANY UROLOGIC DISEASE. DENIES OVARIAN CANCER.BROTHER HAD PANCREATIC CANCER, GRANDFATHER AND MOTHER HAD MELANOMA. SOCIAL HISTORY GENERAL: TOBACCO USE ARE YOU A:FORMER SMOKER LATEX QUESTIONNAIRE LATEX ALLERGY : HAVE YOU EVER DEVELOPED ANY TYPE OF REACTION AFTER HANDLING LATEX PRODUCTS SUCH RUBBER GLOVES, CONDOMS, DIAPHRAGMS, BALLOONS, SOCKS, OR UNDERWEAR?NO LATEX ALLERGY : HAVE YOU EVER DEVELOPED ANY TYPE OF REACTION DURING OR AFTER DENTAL APPOINTMENT, VAGINAL/RECTAL EXAMINATION, SURGICAL PROCEDURE, OR ANY OTHER EXPOSURE?NO LATEX RISK : HAVE YOU EVER HAD ANY DIFFICULTY BREATHING OR HIVES AFTER EATING OR HANDLING ANY FRUITS, OR VEGETABLES; SUCH KIWI, BANANAS, STONE FRUITS, OR CHESTNUTSNO LATEX RISK : DO YOU HAVE A PREVIOUS PERSONAL HISTORY OF MORE THAN NINE SURGERIES, SPINA BIFIDA, OR REPEATED CATHERIZATIONS? NO LATEX RISK : ARE YOU FREQUENTLY EXPOSED TO LATEX PRODUCTS IN YOUR OCCUPATION?NO DATE ASKED : 02/05/2021 ALCOHOL USE: YES. ALCOHOL SCREENING DID YOU HAVE A DRINK CONTAINING ALCOHOL IN THE PAST YEAR?YES HOW OFTEN DID YOU HAVE SIX OR MORE DRINKS ON ONE OCCASION IN THE PAST YEAR?NEVER (0 POINTS) HOW MANY DRINKS DID YOU HAVE ON A TYPICAL DAY WHEN YOU WERE DRINKING IN THE PAST YEAR?1 OR 2 (0 POINTS) HOW OFTEN DID YOU HAVE A DRINK CONTAINING ALCOHOL IN THE PAST YEAR?FOUR OR MORE TIMES A WEEK (4 POINTS) POINTS4 INTERPRETATIONPOSITIVE RECREATIONAL DRUG USE DENIES. CAFFEINE CAFFEINE USE?NO SEXUAL HX HAD SEX IN THE LAST 12 MONTHS (VAGINAL, ORAL, OR ANAL)?: YES, WITH: MEN ONLY, HAVE YOU EVER HAD AN STD?: NO. HIV / HEP-C SCREENING HIV TEST OFFERED TO PATIENT:YES DATE OFFERED:09/09/2018 TEST ACCEPTED:NO REASON:PATIENT DECLINED BROCHURE PROVIDED TO PATIENTYES EPISCOPAL [id number] SABIANISM LANGUAGE LANGUAGES SPOKEN:BAHRAINI EDUCATION [facility]. LEARNING BARRIERS / SPECIAL NEEDS CHANGE FROM LAST VISIT?NO BARRIERS TO LEARNING?NO HEARING IMPAIRED?NO VISION IMPAIRED?YES :CORRECTIVE LENSES COGNITIVELY IMPAIRED?NO READINESS TO LEARN?YES LEARNING PREFERENCES?NO LEARNING CAPABILITIES PRESENT?YES EMOTIONAL BARRIERS?NO SPECIAL DEVICES?NO MANAGER FUND NEEDED?NO DOMESTIC VIOLENCE DENIES, 06/13/14 HITS=4. OCCUPATION: [employer] AT [employer] IN [employer]. DIET: EATS WHAT SHE WANTS, INCREASING FIBER, NO HX ED. EXERCISE: STAYS ACTIVE AT WORK. MARITAL STATUS: . OTHERS AT HOME: LIVES WITH , MOTHER. HOUSING: OWNS HOME. HOSPITALIZATION/MAJOR DIAGNOSTIC PROCEDURE CHILDBIRTH 1986, 1990, 1994 SEE ABOVE REVIEW OF SYSTEMS CONSTITUTIONAL: ANY RECENT FEVER NO . CHILLS NO . WEIGHT CHANGE OF UNKNOWN REASONS NO . GASTROENTEROLOGY: NEW UNEXPLAINABLE CHANGES IN BOWEL CONTROL NO . CONSTIPATION NO . GENITOURINARY: ANY NEW CHANGE IN BLADDER CONTROL? NO . NEUROLOGY: NEW ONSET DIZZINESS OR NEUROLOGICAL CHANGES NOT MENTIONED NO . NEW NUMBNESS OR PAIN PATTERNS NOT MENTIONED AND PERTINENT TO TODAY'S VISIT NO . CARDIOLOGY: NEW CHEST PRESSURE NO . PATIENT DENIES NO . RESPIRATORY: UNEXPLAINABLE COUGH NO . NEW SHORTNESS OF BREATH NO . VITAL SIGNS WT 135.4 LBS, HT 65 IN, BMI 22.53 INDEX, BP 129/90 MM HG, HR 83 /MIN, RR 18 /MIN, TEMP 96.0 F, OXYGEN SAT % 96%, SAFE IN ENV? (Y/N) YES, NA INITIALS AW 0821T.MARY PRATT. EXAMINATION GENERAL EXAMINATION: GENERALNO ACUTE DISTRESS, WELL NOURISHED AND HYDRATED. PSYCHAPPROPRIATE MOOD AND AFFECT . NECK:NO LYMPHADENOPATHY, SUPPLE. LUNGS:CLEAR TO AUSCULTATION BILATERALLY, NO WHEEZES, RHONCHI, RALES. HEART:NO MURMURS, REGULAR RATE AND RHYTHM. MUSCULOSKELETAL:NORMAL RANGE OF MOTION., MUSCLE STRENGTH TESTING 5/5 BILATERAL LOWER EXTREMITIES. LUMBAR:TENDERNESS NOTED OVER LOWER BACK . SPECIFIC POINT TENDERNESS NOTED OVER LUMBAR FACETS L4-5, L5-S1. PAIN IN THIS AREA IS AGGRAVATED WITH FACET LOADING/EXTENSION OF SPINE . NEUROLOGIC EXAM:NORMAL SENSATION TO LIGHT TOUCH LOWER EXTREMITIES . DIAGNOSTIC TESTS REVIEWED MRI L/S SPINE 12/2020. ASSESSMENTS SPONDYLOSIS OF LUMBOSACRAL JOINT - M47.817 (PRIMARY) TREATMENT SPONDYLOSIS OF LUMBOSACRAL JOINT SALINE LOCK (ORDERED FOR 02/12/2021) MEDICATION: NORCO TABLET 5MG/325MG ORALLY (HYDROCODONE/ACETAMINOPHEN) (ORDERED FOR 02/12/2021) MEDICATION: VALIUM TAB 2MG ORALLY (DIAZEPAM) (ORDERED FOR 02/12/2021) NOTES: BILATERAL THERAPEUTIC LUMBAR FACET BLOCK L4-5,L5-S1 AFTER DISCUSSING POTENTIAL RISKS OF IMMUNE SUPPRESSION WITH PENTAZA AND STEROID MEDICATION USED IN INJECTION, PATIENT WOULD LIKE TO CONTINUE TAKING PENTAZA AND WILL NOT STOP FOR PROCEDURE. PRINTED AND REVIEWED PRE PROCEDURE WITH PATIENT DIANNA PRATT. PROCEDURE CODES FA211 ESTABILISHED PATIENT [facility] CHARGE DISPOSITION & COMMUNICATION FOLLOW UP POST PROCEDURE (REASON: BILATERAL THERAPEUTIC LUMBAR FACET BLOCK L4-5,L5-S1) ELECTRONICALLY SIGNED BY WILLIAM AYALA ON 02/08/2021 AT 01:06 PM EST DISCLAIMER : THIS IS A VISIT SUMMARY EXTRACTED FROM THE [employer] CHART. IT IS NOT A COPY OF THE [employer] PROGRESS NOTE. MTDD
== END ==
LOC: M PAIN 08:15
PROVIDERS: ATTEND Nurse Practitioner Family
DX: M47.817 Spondylosis without myelopathy or radiculopathy, lumbosacral region (principal); K21.9 Gastro-esophageal reflux disease without esophagitis; J45.909 Unspecified asthma, uncomplicated; K50.90 Crohn's disease, unspecified, without complications; Z79.899 Other long term (current) drug therapy; Z87.891 Personal history of nicotine dependence; Z88.1 Allergy status to other antibiotic agents; Z88.5 Allergy status to narcotic agent

== ENCOUNTER → 2021-02-16 | Outpatient (CLI) | payer OTHER | LOC: M LABSMTC 10:20 | PROVIDERS: ATTEND Anesthesiology | DX: Z11.52 Encounter for screening for COVID-19 (principal) ==

== ENCOUNTER → 2021-02-21 | Outpatient (CLI) | payer OTHER ==
[~2021-02-21] MED LIST: BUPIVACAINE HCL 0.25% 30ML VIAL As Ordered ONE; ISOVUE-M 300 61% 15ML VIAL As Ordered ONE; LIDOCAINE 1% SDV 30ML VIAL As Ordered ONE; NORCO, ANEXSIA 5/325MG TABLET (HYDROcodone/ACETAMINOPHEN) As Ordered ONE; TRIAMCINOLONE ACETONIDE SUSP 40 MG/ML VIAL (J3301) As Ordered ONE; diazePAM 2 MG TAB As Ordered ONE
--- NOTE | 2021-02-21 10:22 | REP ---
INDICATION: BILATERAL THERAPEUTIC LUMBAR FACET BLOCK L4-L5, L5-S1. COMPARISON: None. TECHNIQUE: Five views. 26.1 seconds of fluoroscopy time is reported. FINDINGS: A sequence of 5 last image hold fluoroscopically obtained spot radiograph(s) of the lumbar spine document(s) needle position(s) and contrast injection associated with injection procedure. IMPRESSION: Procedural imaging. <Electronically signed by Socrates Fitzgerald > 02/21/21 1013
--- NOTE | 2021-02-23 04:48 | ECWPNPC ---
PATIENT NAME: JAYDE METCALF : 1965 GENDER: FEMALE VISIT DATE: 02/21/2021 DISCHARGE DATE: 02/21/21 1037 VISIT LOCKED DATE TIME: PHYSICIAN: ADEEL STRATTON MD RESOURCE: ADEEL STRATTON MD REASON FOR APPOINTMENT 1. BILATERAL THERAPEUTIC LUMBAR FACET BLOCK L4-L5,L5-S1 HISTORY OF PRESENT ILLNESS GENERAL: -. FALL RISK SCREENING: SCREENING : NO FALLS REPORTED IN THE LAST YEAR. PAIN SCREENING: PATIENT HAS A COMPLAINT OF ACUTE OR CHRONIC PAIN :YES LOCATION OF PAIN:LOW BACK, LEFT HIP, RIGHT HIP OUTSIDE OF HIPS SOMETIMES BUT NOT AT PRESENT TIME INTENSITY OF PAIN (SCALE OF 1 TO 10):6 AVERAGING 6-8 WHAT DOES YOUR PAIN FEEL LIKE:ACHING, BURNING, CONTINOUS, SHARP, STABBING, TENDER, THROBBING, SORE, SHOOTING "HELL" DURATION:CONTINOUS, CONSTANT, AWAKENS FROM SLEEP PAIN IS INCREASED BY:ACTIVITIES, PROLONGED STANDING, OTHERS PROLONGED SITTING PAIN IS DECREASED BY: ICE, HEAT AND EXERCISE PAIN HAS INTERFERED WITH THE FOLLOWING: EVERYTHING NURSING NOTE: -. PAIN CENTER INTAKE QUESTIONS: DO YOU HAVE A HISTORY OF MRSA? :NO DO YOU TAKE A BLOOD THINNERS? :NO DO YOU HAVE ANY BLEEDING DISORDERS? :NO ANY NEW NUMBNESS OR WEAKNESS IN YOUR LEGS OR ARMS? :NO ANY PACEMAKER,DEFIBRILLATOR, OR DORSAL COLUMN STIMULATOR? :NO DO YOU HAVE ANY RASHES OR OPEN SORES? :NO ARE YOU ALLERGIC TO IV DYE? :NO ARE YOU DIABETIC? :NO ANY NEW PROBLEMS WITH YOUR MEDICATIONS? :NO HAVE YOU RECEIVED A VACCINE IN THE PAST 30 DAYS? :NO DO YOU PLAN TO RECEIVE A VACCINE IN THE NEXT 21 DAYS? :NO DO YOU TAKE ANY IMMUNOSUPPRESSIVE MEDICATIONS? :NO ANY HISTORY OF SEIZURES? :NO ANY HISTORY OF CARDIAC ISSUES OR EVENTS? :NO DO YOU HAVE ANY KIDNEY OR LIVER DISEASE? :NO DO YOU HAVE SLEEP APNEA? :NO ANY RECENT HEAD INJURY? :NO DO YOU HAVE ANY NEW INFECTIONS? :NO IS THERE A CHANCE YOU COULD BE ? :NO ARE YOU BREAST FEEDING? :NO WHEN DID YOU LAST EAT? : -2100 02/20/21 WHEN DID YOU LAST DRINK? : -02/21/21 0600 WHAT DID YOU LAST DRINK? : -WATER NAME OF PERSON DRIVING YOU HOME? : SESAR DO YOU HAVE ANY OTHER QUESTIONS OR CONCERNS? : NONE CURRENT MEDICATIONS TAKING CLARITIN 10 MG TABLET 1 TABLET ORALLY ONCE A DAY TAKING PENTASA 500 MG CAPSULE 2 CAP(S) P.O. THREE TIMES DAILY TAKING MULTIVITAMINS OTC TABLET 1 TABLET P.O. ONCE A DAY TAKING ADVAIR HFA 230-21 MCG/ACT AEROSOL 2 PUFFS P.O. DAILY AND BIDPRN TAKING VITAMIN E 400 UNIT CAPSULE 1 CAPSULE P.O. NEEDED TAKING LIDODERM 5 % PATCH 1 PATCH TO INTACT SKIN REMOVE AFTER 12 HOURS EXTERNALLY ONCE A DAY TAKING CALCIUM 500 MG TABLET 1 TABLET P.O. TWICE A DAY TAKING MYRBETRIQ 50 MG TABLET 1 TABLET ORALLY DAILY TAKING OMEPRAZOLE 20 MG CAPSULE DELAYED RELEASE 1 CAPSULE ORALLY DAILY TAKING FLUOXETINE HCL 10 MG CAPSULE 1 CAPSULE ORALLY ONCE A DAY TAKING PROMETRIUM 100 MG CAPSULE 1 CAPSULES AT BEDTIME ORALLY ONCE A DAY TAKING ESTRACE 0.5 MG TABLET 1 TABLET ORALLY DAILY TAKING ESTRACE 0.1 MG/GM CREAM 1 GM VAGINAL TWICE A WEEK AT HS TAKING DIFLUCAN 150 MG TABLET 1 TABLET ORALLY PRN YEAST INFECTION TAKING PYRIDIUM 200 MG TABLET 1 TABLET AFTER MEALS ORALLY THREE TIMES A DAY NEEDED FOR URINARY SYMPTOMS TAKING METAXALONE 800 MG TABLET 1 TABLET ORALLY ONCE A DAY NEEDED PAST MEDICAL HISTORY GERD ALLERGIC RHINITIS POSTMENOPAUSE W/HRT BENIGN RECTAL POLYP 09/11 COLONOSCOPY FREQ CANDIDIASIS VULVOVAG FREQUENT UTI COLD SORES [employer] GENETIC TEST NEG 2019 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 LIFETIME BREAST CANCER RISK 13.6 % [facility]OHN'[facility] LOW BACK PAIN ALLERGIES MACROBID: HIVES - ALLERGY CODEINE SULFATE: HIVES - ALLERGY SOCIAL HISTORY GENERAL: TOBACCO USE ARE YOU A:FORMER SMOKER LATEX QUESTIONNAIRE LATEX ALLERGY : HAVE YOU EVER DEVELOPED ANY TYPE OF REACTION AFTER HANDLING LATEX PRODUCTS SUCH RUBBER GLOVES, CONDOMS, DIAPHRAGMS, BALLOONS, SOCKS, OR UNDERWEAR?NO LATEX ALLERGY : HAVE YOU EVER DEVELOPED ANY TYPE OF REACTION DURING OR AFTER DENTAL APPOINTMENT, VAGINAL/RECTAL EXAMINATION, SURGICAL PROCEDURE, OR ANY OTHER EXPOSURE?NO LATEX RISK : HAVE YOU EVER HAD ANY DIFFICULTY BREATHING OR HIVES AFTER EATING OR HANDLING ANY FRUITS, OR VEGETABLES; SUCH KIWI, BANANAS, STONE FRUITS, OR CHESTNUTSNO LATEX RISK : DO YOU HAVE A PREVIOUS PERSONAL HISTORY OF MORE THAN NINE SURGERIES, SPINA BIFIDA, OR REPEATED CATHERIZATIONS? NO LATEX RISK : ARE YOU FREQUENTLY EXPOSED TO LATEX PRODUCTS IN YOUR OCCUPATION?NO DATE ASKED : 02/19/2021 ALCOHOL USE: YES. ALCOHOL SCREENING DID YOU HAVE A DRINK CONTAINING ALCOHOL IN THE PAST YEAR?YES HOW OFTEN DID YOU HAVE SIX OR MORE DRINKS ON ONE OCCASION IN THE PAST YEAR?NEVER (0 POINTS) HOW MANY DRINKS DID YOU HAVE ON A TYPICAL DAY WHEN YOU WERE DRINKING IN THE PAST YEAR?1 OR 2 (0 POINTS) HOW OFTEN DID YOU HAVE A DRINK CONTAINING ALCOHOL IN THE PAST YEAR?FOUR OR MORE TIMES A WEEK (4 POINTS) POINTS4 INTERPRETATIONPOSITIVE RECREATIONAL DRUG USE DENIES. CAFFEINE CAFFEINE USE?NO SEXUAL HX HAD SEX IN THE LAST 12 MONTHS (VAGINAL, ORAL, OR ANAL)?: YES, WITH: MEN ONLY, HAVE YOU EVER HAD AN STD?: NO. HIV / HEP-C SCREENING HIV TEST OFFERED TO PATIENT:YES DATE OFFERED:09/09/2018 TEST ACCEPTED:NO REASON:PATIENT DECLINED BROCHURE PROVIDED TO PATIENTYES LATTER DAY [id number] CHRISTIAN LANGUAGE LANGUAGES SPOKEN:[employer] [facility]. 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 DIET: EATS WHAT SHE WANTS, INCREASING FIBER, NO HX ED. EXERCISE: STAYS ACTIVE AT WORK. MARITAL STATUS: . OTHERS AT HOME: LIVES WITH , MOTHER. - HAS THE PATIENT BEEN EDUCATED REGARDING HIS/HER PLAN OF CARE?YES HAS THE PATIENT BEEN EDUCATED REGARDING PAIN, THE RISK FOR PAIN, THE IMPORTANCE OF EFFECTIVE PAIN MANAGEMENT, AND THE PAIN ASSESSMENT PROCESS?YES HOUSING: OWNS HOME. ADVANCE DIRECTIVE ADVANCE DIRECTIVE DISCUSSED WITH PATIENT:YES PT DOES NOT HAVE ANY ADVANCED DIRECTIVES AND DECLINES INFORMATION ON HCP AT THIS TIME VITAL SIGNS WT 136.2 LBS, HT 65 IN, BMI 22.66 INDEX, BP 121/76 MM HG, HR 65 /MIN, RR 18 /MIN, TEMP 98.0 F, OXYGEN SAT % 100%, SAFE IN ENV? (Y/N) YES, NA INITIALS SC 08:44. EXAMINATION GENERAL EXAMINATION: A HISTORY AND PHYSICAL EXAM ON THE PATIENT WAS DONE ON 02/05/2021 (DATE OF ORIGINAL ASSESSMENT) IN PREPARATION OF SURGERY/PROCEDURE. I HAVE NOW REASSESSED THIS PATIENT'S HEALTH STATUS AND PERFORMED AN UPDATED EXAM TODAY. ALL CHANGES IN THE PATIENT'S HISTORY, PHYSICAL EXAM, PRE-EXISTING CONDITONS, AND INDICATIONS/CONTRAINDICATIONS TO THE PLANNED PROCEDURE AND ANESTHESIA ARE DOCUMENTED AND EVALUATED BELOW. I ATTEST TO THE ADEQUACY AND APPROPRIATENESS OF MY ASSESSMENT, AND CONFIRM THE NECESSITY FOR THE PLANNED PROCEDURE. THE PATIENT IS ALERT, ORIENTED TIMES THREE AND COOPERATIVE. LUNGS ARE CLEAR TO AUSCULTATION. HEART SHOWS REGULAR RHYTHM, NO MURMURS AND NO GALLOPS. ASSESSMENTS SPONDYLOSIS OF LUMBOSACRAL JOINT - M47.817 (PRIMARY) SPONDYLOSIS WITHOUT MYELOPATHY OR RADICULOPATHY, LUMBAR REGION - M47.816 TREATMENT SPONDYLOSIS OF LUMBOSACRAL JOINT SMC FACET BLOCK (PAIN)[id number] COMPLETION OF PROCEDURAL VISIT WHEN MEETS CRITERIA MEDICATION: NORCO TABLET 5MG/325MG ORALLY (HYDROCODONE/ACETAMINOPHEN)AMTT ALEXANDER 02/21/2021 9:09:35 AM > VERIFIED RAZA ESTES RN 02/21/2021 9:16:37 AM > ADMINISTERED. MEDICATION: VALIUM TAB 2MG ORALLY (DIAZEPAM)MATT ALEXANDER 02/21/2021 9:09:51 AM > VERIFIED RAZA ESTES RN 02/21/2021 9:17:01 AM > ADMINISTERED. SALINE RAZA VOGEL RN 02/21/2021 9:30:28 AM > #22 INSERTED RIGHT ANTECUBITAL WITHOUT DIFFICULTY. NO PAIN REPORTED OR SWELLING NOTED AT SITE. FLUSHED EASILY WITH 2 ML NS. OTHERS NOTES: 02/19/21 1248 PRE-PROCEDURE CALL COMPLETED. PROCEDURES PAIN NURSING RECORD PROCEDURE IN ROOM 0943, PHYSICIAN IN ROOM 0955, START 1002, FINISH 1008, PHYSICIAN OUT OF ROOM 1012, OUT OF ROOM 1015, ECG OTHER SINUS BRADYCARDIA, PATIENT SHIELDED YES, SAFETY STRAP YES, PREP CHLOROPREP Jen ALEXANDER RN, DRESSING TEGADERM DR. STRATTON LOC: 45, 1. ALERT, ORIENTED 0957, 1. ALERT, ORIENTED 1013, 1. ALERT, ORIENTED 1018, 1. ALERT, ORIENTED RESP: 0945, 1. REGULAR, NO DYSPNEA 0957 , 1. REGULAR, NO DYSPNEA 1013 , 1. REGULAR, NO DYSPNEA 1018, 1. REGULAR, NO DYSPNEA COLOR: 0945, 1. PINK [id number], 1. PINK 1013, 1. PINK 1018, 1. PINK SKIN: 0945, 1. WARM, DRY 0957, 1. WARM, DRY 1013, 1. WARM, DRY 1018, 1. WARM, DRY POSITION: 0945, 1. PRONE 0957, 1. PRONE 1013 , 1. PRONE 1018, 2. SUPINE VITALS: 0950 59-16 117/65 98% 0957 69-16 140/71 98% 1013 63-16 124/79 100% 1018 59-16 112/68 99% NOTES Sarah ESTES RN COMPLETION OF PROCEDURE APPOINTMENT: POST PAIN 6, DRESSING SITE DRY AND INTACT, IV DISCONTINUED, SITE CLEAR, CATHETER INTACT, GAIT STEADY, TEACHING COMPLETED, PATIENT ACKNOWLEDGES UNDERSTANDING YES, PROCEDURE APPOINTMENT COMPLETED AT 1036 PN LUMBAR FACET BLOCK THERAPEUTIC PRE PROCEDURE DIAGNOSIS LUMBAR SPONDYLOSIS, LUMBOSACRAL SPONDYLOSIS POST PROCEDURE DIAGNOSIS LUMBAR SPONDYLOSIS, LUMBOSACRAL SPONDYLOSIS PROCEDURE BILATERAL L4-L5 AND BILATERAL L5-S1 LUMBAR FACET THERAPEUTIC BLOCK SURGEON DR. ADEEL STRATTON VENETIAN BLIND CLEANER AND REPAIRER NONE ANESTHESIA LOCAL PRE PROCEDURE NOTE THE PATIENT HAS A HISTORY OF CHRONIC LOW BACK PAIN. I EVALUATED THE PATIENT AND REVIEWED THE CHART. I WENT OVER THE RISKS, ALTERNATIVES, AND BENEFITS ASSOCIATED WITH THIS PROCEDURE. THE PATIENT WOULD LIKE TO PROCEED AND GIVES CONSENT TO PERFORM THE PROCEDURE. THE PATIENT DENIES UNEXPLAINABLE WEIGHT LOSS, FEVER, CHILLS, OR NEW CHANGES IN URINARY OR BOWEL CONTROL. PATIENT IS COVID-19 NEGATIVE. DESCRIPTION OF PROCEDURE THE PATIENT WAS BROUGHT TO THE PROCEDURE ROOM AND PLACED IN THE PRONE POSITION. THE LUMBOSACRAL AREA WAS CLEANED WITH CHLORAPREP SOLUTION AND DRAPED ASEPTICALLY. THE PROCEDURE WAS DONE UNDER STERILE CONDITIONS. A TIMEOUT WAS PERFORMED WHERE THE CONSENTED SITE WAS VERIFIED WITH EVERYONE IN THE ROOM. UNDER FLUOROSCOPIC GUIDANCE, THE TARGET POINT WAS SELECTED AT THE RIGHT AND LEFT L4-L5 AND RIGHT AND LEFT L5-S1 FACET JOINTS. TARGET POINT WAS SELECTED AFTER LATERAL ROTATION AND TILT OF THE MAGNIFIER OF THE C-ARM. I CONFIRMED AGAIN THE SITE OF TARGET. LIDOCAINE 0.5% WAS USED TO NUMB THE SKIN AND THE SUBCUTANEOUS TISSUE BELOW IT. SPINAL NEEDLES, 22-GAUGE, WERE ADVANCED UNDER FLUOROSCOPIC GUIDANCE AND FOLLOWING PATIENT FEEDBACK UNTIL THE TARGETS WERE TOUCHED. THE POSITION OF THE NEEDLES WAS VERIFIED WITH AP AND LATERAL VIEWS. AFTER PROPER POSITION OF THE NEEDLES WAS ACHIEVED, ISOVUE-M DYE 30%, 0.1 ML, WAS INJECTED SHOWING ADEQUATE SPREAD OF THE DYE. KENALOG 10 MG WAS INJECTED AT EACH SITE. THEN, A SOLUTION OF 1.0 ML OF BUPIVACAINE 0.125% OF WAS USED TO FLUSH EACH SITE. THE MEDICATION WAS VERIFIED WITH THE NURSE. THERE WAS NO EVIDENCE OF BLOOD, PARESTHESIA OR CEREBROSPINAL FLUID DURING THE PROCEDURE. THE PATIENT WAS SENT TO THE RECOVERY ROOM. THE PATIENT WAS MOVING THE EXTREMITIES AND DOING WELL. THERE WERE NO COMPLICATIONS DURING THE PROCEDURE. ESTIMATED BLOOD LOSS WAS LESS THAN 5 ML. FLUOROSCOPY TIME WAS 26 SECONDS POST PROCEDURE NOTE DEPENDING ON THE RESULTS, CONSIDER REPEATING THIS INJECTION. IF SHE DOES NOT GET LONG LASTING PAIN RELIEF CONSIDER A DIAGNOSTIC FACET BLOCK. WE CAN ALSO CONSIDER DOING A LUMBAR EPIDURAL STEROID INJECTION. I WOULD ADVISE TO USE VALIUM 10MG AND 10 MG OF HYDROCODONE OR 10MG OF OXYCODONE. THE PATIENT WILL BE SEEN IN A FOLLOW UP IN THE NEXT FEW WEEKS. I AM LOOKING FOR LONG LASTING RELIEF FOR THE PATIENT WITH THIS INTERVENTION. INSTRUCTIONS WERE GIVEN, QUESTIONS WERE ANSWERED, AND THE PATIENT EXPRESSED UNDERSTANDING AND AGREES WITH THE PLAN. I, VAHID MCKEE, DOCUMENTED THE ABOVE INFORMATION ACTING A SCRIBE FOR DR. STRATTON. I HAVE REVIEWED THE ABOVE DOCUMENT, WRITTEN BY VAHID MCKEE, CONTRACTING MANAGER, AND I VERIFY THAT IT IS ACCURATE PROCEDURE CODES 43564 INJ PARAVERT F JNT L/S 1 LEV, MODIFIERS: 50 12924 INJ PARAVERT F JNT L/S 2 LEV, MODIFIERS: 50 DISPOSITION & COMMUNICATION FOLLOW UP F/U WITH CAR WASH SUPERVISOR (REASON: POST BILATERAL THERAPEUTIC LUMBAR FACET BLOCK L4-L5, L5-S1) ELECTRONICALLY SIGNED BY ADEEL STRATTON MD, MD ON 02/22/2021 AT 12:38 PM EDT DISCLAIMER : THIS IS A VISIT SUMMARY EXTRACTED FROM THE [email or web address] CHART. IT IS NOT A COPY OF THE [email or web address] PROGRESS NOTE. MTDD
== END ==
LOC: M PAIN 08:30
PROVIDERS: ATTEND Anesthesiology
DX: M47.817 Spondylosis without myelopathy or radiculopathy, lumbosacral region (principal); M47.816 Spondylosis without myelopathy or radiculopathy, lumbar region; K21.9 Gastro-esophageal reflux disease without esophagitis; J45.909 Unspecified asthma, uncomplicated; K50.90 Crohn's disease, unspecified, without complications; Z87.891 Personal history of nicotine dependence; Z79.899 Other long term (current) drug therapy; Z88.1 Allergy status to other antibiotic agents; Z88.5 Allergy status to narcotic agent
CPT/HCPCS: 64493; 64494; J3301; Q9967

== ENCOUNTER → 2021-02-27 | Outpatient (RCR) | payer OTHER | LOC: M PT 01-28 08:04 | PROVIDERS: ATTEND Family Medicine | DX: M46.1 Sacroiliitis, not elsewhere classified (principal); M54.5 Low back pain ==

== ENCOUNTER → 2021-03-07 | Outpatient (CLI) | payer OTHER ==
--- NOTE | 2021-03-10 23:54 | ECWPNPC ---
PATIENT NAME: JAYDE METCALF : 1965 GENDER: FEMALE VISIT DATE: 03/07/2021 DISCHARGE DATE: 03/07/21947 VISIT LOCKED DATE TIME: PHYSICIAN: MAGALY HAHN RESOURCE: MAGALY HAHN REASON FOR APPOINTMENT 1. POST BILATERAL THERAPEUTIC LUMBAR FACET BLOCK L4-5,L5-S1 HISTORY OF PRESENT ILLNESS GENERAL: HERE FOR POST PROCEDURE FOLLOW-UP. HAD BILATERAL L4-5, L5-S1 THERAPEUTIC LUMBAR FACET BLOCK ON 02/21/2021. REPORTING MARKED REDUCTION IN PAIN FOR 24 HOURS AND DOES FEEL THOUGH SHE CONTINUES TO BE BETTER POST PROCEDURE.REVIEWED RADIOFREQUENCY AND DIAGNOSTIC LUMBAR FACET BLOCKS.SHE CONTINUES TO HAVE LOW BACK PAIN THAT INTERUPTS HER ABILITY TO TOLERATE ACTIVITIES WITHOUT SIGNIFICANT INCREASE IN PAIN. -. FALL RISK SCREENING: SCREENING : NO FALLS REPORTED IN THE LAST YEAR. PAIN SCREENING: PATIENT HAS A COMPLAINT OF ACUTE OR CHRONIC PAIN :YES LOCATION OF PAIN:LOW BACK INTENSITY OF PAIN (SCALE OF 1 TO 10):5 WHAT DOES YOUR PAIN FEEL LIKE:ACHING, BURNING, TENDER, THROBBING, SORE, SHOOTING DURATION:CONTINOUS, CONSTANT, ALL DAY PAIN IS INCREASED BY:OTHERS SITTING PAIN IS DECREASED BY:OTHERS STANDING NURSING NOTE: -. PAIN CENTER INTAKE QUESTIONS: DO YOU HAVE A HISTORY OF MRSA? :NO DO YOU TAKE A BLOOD THINNERS? :NO DO YOU HAVE ANY BLEEDING DISORDERS? :NO ANY NEW NUMBNESS OR WEAKNESS IN YOUR LEGS OR ARMS? :YES BOTH ARMS AND LEGS ANY PACEMAKER,DEFIBRILLATOR, OR DORSAL COLUMN STIMULATOR? :NO DO YOU HAVE ANY RASHES OR OPEN SORES? :NO ARE YOU ALLERGIC TO IV DYE? :NO ARE YOU DIABETIC? :NO ANY NEW PROBLEMS WITH YOUR MEDICATIONS? :NO HAVE YOU RECEIVED A VACCINE IN THE PAST 30 DAYS? :NO DO YOU PLAN TO RECEIVE A VACCINE IN THE NEXT 21 DAYS? :NO DO YOU NEED ANY PRESCRIPTION? :NO DO YOU TAKE ANY IMMUNOSUPPRESSIVE MEDICATIONS? :NO CURRENT MEDICATIONS TAKING CLARITIN 10 MG TABLET 1 TABLET ORALLY ONCE A DAY TAKING PENTASA 500 MG CAPSULE 2 CAP(S) P.O. THREE TIMES DAILY TAKING MULTIVITAMINS OTC TABLET 1 TABLET P.O. ONCE A DAY TAKING ADVAIR HFA 230-21 MCG/ACT AEROSOL 2 PUFFS P.O. DAILY AND BIDPRN TAKING VITAMIN E 400 UNIT CAPSULE 1 CAPSULE P.O. NEEDED TAKING LIDODERM 5 % PATCH 1 PATCH TO INTACT SKIN REMOVE AFTER 12 HOURS EXTERNALLY ONCE A DAY TAKING CALCIUM 500 MG TABLET 1 TABLET P.O. TWICE A DAY TAKING MYRBETRIQ 50 MG TABLET 1 TABLET ORALLY DAILY TAKING OMEPRAZOLE 20 MG CAPSULE DELAYED RELEASE 1 CAPSULE ORALLY DAILY TAKING FLUOXETINE HCL 10 MG CAPSULE 1 CAPSULE ORALLY ONCE A DAY TAKING PROMETRIUM 100 MG CAPSULE 1 CAPSULES AT BEDTIME ORALLY ONCE A DAY TAKING ESTRACE 0.5 MG TABLET 1 TABLET ORALLY DAILY TAKING ESTRACE 0.1 MG/GM CREAM 1 GM VAGINAL TWICE A WEEK AT HS TAKING DIFLUCAN 150 MG TABLET 1 TABLET ORALLY PRN YEAST INFECTION TAKING PYRIDIUM 200 MG TABLET 1 TABLET AFTER MEALS ORALLY THREE TIMES A DAY NEEDED FOR URINARY SYMPTOMS TAKING METAXALONE 800 MG TABLET 1 TABLET ORALLY ONCE A DAY NEEDED MEDICATION LIST REVIEWED AND RECONCILED WITH THE PATIENT PAST MEDICAL HISTORY GERD ALLERGIC RHINITIS POSTMENOPAUSE W/HRT BENIGN RECTAL POLYP 09/11 COLONOSCOPY FREQ CANDIDIASIS VULVOVAG FREQUENT UTI COLD SORES [employer] GENETIC TEST NEG 2019 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 LIFETIME BREAST CANCER RISK 13.6 % ASTHMA ([facility]) CROHN'S LOW BACK PAIN ALLERGIES MACROBID: HIVES - ALLERGY CODEINE SULFATE: HIVES - ALLERGY SOCIAL HISTORY GENERAL: TOBACCO USE ARE YOU A:FORMER SMOKER LATEX QUESTIONNAIRE LATEX ALLERGY : HAVE YOU EVER DEVELOPED ANY TYPE OF REACTION AFTER HANDLING LATEX PRODUCTS SUCH RUBBER GLOVES, CONDOMS, DIAPHRAGMS, BALLOONS, SOCKS, OR UNDERWEAR?NO LATEX ALLERGY : HAVE YOU EVER DEVELOPED ANY TYPE OF REACTION DURING OR AFTER DENTAL APPOINTMENT, VAGINAL/RECTAL EXAMINATION, SURGICAL PROCEDURE, OR ANY OTHER EXPOSURE?NO LATEX RISK : HAVE YOU EVER HAD ANY DIFFICULTY BREATHING OR HIVES AFTER EATING OR HANDLING ANY FRUITS, OR VEGETABLES; SUCH KIWI, BANANAS, STONE FRUITS, OR CHESTNUTSNO LATEX RISK : DO YOU HAVE A PREVIOUS PERSONAL HISTORY OF MORE THAN NINE SURGERIES, SPINA BIFIDA, OR REPEATED CATHERIZATIONS? NO LATEX RISK : ARE YOU FREQUENTLY EXPOSED TO LATEX PRODUCTS IN YOUR OCCUPATION?NO DATE ASKED : 03/07/2021 ALCOHOL USE: YES. ALCOHOL SCREENING DID YOU HAVE A DRINK CONTAINING ALCOHOL IN THE PAST YEAR?YES HOW OFTEN DID YOU HAVE SIX OR MORE DRINKS ON ONE OCCASION IN THE PAST YEAR?NEVER (0 POINTS) HOW MANY DRINKS DID YOU HAVE ON A TYPICAL DAY WHEN YOU WERE DRINKING IN THE PAST YEAR?1 OR 2 (0 POINTS) HOW OFTEN DID YOU HAVE A DRINK CONTAINING ALCOHOL IN THE PAST YEAR?FOUR OR MORE TIMES A WEEK (4 POINTS) POINTS4 INTERPRETATIONPOSITIVE RECREATIONAL DRUG USE DENIES. CAFFEINE CAFFEINE USE?NO SEXUAL HX HAD SEX IN THE LAST 12 MONTHS (VAGINAL, ORAL, OR ANAL)?: YES, WITH: MEN ONLY, HAVE YOU EVER HAD AN STD?: NO. HIV / HEP-C SCREENING HIV TEST OFFERED TO PATIENT:YES DATE OFFERED:09/09/2018 TEST ACCEPTED:NO REASON:PATIENT DECLINED BROCHURE PROVIDED TO PATIENTYES CHEON[id number] SPIRITISM LANGUAGE LANGUAGES SPOKEN:[employer] [facility]. 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 DIET: EATS WHAT SHE WANTS, INCREASING FIBER, NO HX ED. EXERCISE: STAYS ACTIVE AT WORK. MARITAL STATUS: . OTHERS AT HOME: LIVES WITH , MOTHER. - HAS THE PATIENT BEEN EDUCATED REGARDING HIS/HER PLAN OF CARE?YES HAS THE PATIENT BEEN EDUCATED REGARDING PAIN, THE RISK FOR PAIN, THE IMPORTANCE OF EFFECTIVE PAIN MANAGEMENT, AND THE PAIN ASSESSMENT PROCESS?YES HOUSING: OWNS HOME. ADVANCE DIRECTIVE ADVANCE DIRECTIVE DISCUSSED WITH PATIENT:YES PT DOES NOT HAVE ANY ADVANCED DIRECTIVES AND DECLINES INFORMATION ON HCP AT THIS TIME REVIEW OF SYSTEMS CONSTITUTIONAL: ANY RECENT FEVER NO . CHILLS NO . WEIGHT CHANGE OF UNKNOWN REASONS NO . GASTROENTEROLOGY: NEW UNEXPLAINABLE CHANGES IN BOWEL CONTROL NO . CONSTIPATION NO . GENITOURINARY: ANY NEW CHANGE IN BLADDER CONTROL? NO . NEUROLOGY: NEW ONSET DIZZINESS OR NEUROLOGICAL CHANGES NOT MENTIONED NO . NEW NUMBNESS OR PAIN PATTERNS NOT MENTIONED AND PERTINENT TO TODAY'S VISIT NO . CARDIOLOGY: NEW CHEST PRESSURE NO . PATIENT DENIES NO . RESPIRATORY: UNEXPLAINABLE COUGH NO . NEW SHORTNESS OF BREATH NO . VITAL SIGNS WT 134.6 LBS, HT 65 IN, BMI 22.40 INDEX, BP 143/83 MM HG, HR 72 /MIN, RR 18 /MIN, TEMP 98.1 F, OXYGEN SAT % 100%, SAFE IN ENV? (Y/N) YES, NA INITIALS IL 09:04T.HERNANDEZ MA. EXAMINATION GENERAL EXAMINATION: GENERALNO ACUTE DISTRESS, WELL NOURISHED AND HYDRATED. PSYCHAPPROPRIATE MOOD AND AFFECT . NECK:NO LYMPHADENOPATHY, SUPPLE. LUNGS:CLEAR TO AUSCULTATION BILATERALLY, NO WHEEZES, RHONCHI, RALES. HEART:NO MURMURS, REGULAR RATE AND RHYTHM. MUSCULOSKELETAL:NORMAL RANGE OF MOTION., MUSCLE STRENGTH TESTING 5/5 BILATERAL LOWER EXTREMITIES. LUMBAR:TENDERNESS NOTED OVER LOWER BACK . SPECIFIC POINT TENDERNESS NOTED OVER LUMBAR FACETS L4-5, L5-S1. PAIN IN THIS AREA IS AGGRAVATED WITH FACET LOADING/EXTENSION OF SPINE . NEUROLOGIC EXAM:NORMAL SENSATION TO LIGHT TOUCH LOWER EXTREMITIES . DIAGNOSTIC TESTS REVIEWED MRI L/S SPINE 12/2020. ASSESSMENTS OTHER CHRONIC PAIN - G89.29 (PRIMARY) SPONDYLOSIS OF LUMBOSACRAL JOINT - M47.817 TREATMENT OTHER CHRONIC PAIN PAIN PROCEDURE LOGDATE OF PROCEDURE1PROCEDURE:BILATERAL THERAPEUTIC FACET BLOCK L4-L5,L5-[id number] OF PRE SEDATENORCO-5/325MG, VALIUM 2MGRESULT:REDUCTION IN PAIN SOME OF WHICH CONTINUES TODAY NOTES: BILATERAL DIAGNOSTIC LUMBAR FACET BLOCK L4-5,L5-S1 PRINTED AND REVIEWED PRE PROCEDUE TEACHING WITH PATIENT RickMARY PRATT. PROCEDURE CODES [id number] ESTABILISHED PATIENT [facility] CHARGE DISPOSITION & COMMUNICATION FOLLOW UP POST PROCEDURE (REASON: BILATERAL DIAGNOSTIC LUMBAR FACET BLOCK L4-5,L5-S1) ELECTRONICALLY SIGNED BY WILLIAM AYALA ON 03/10/2021 AT 03:06 PM EDT DISCLAIMER : THIS IS A VISIT SUMMARY EXTRACTED FROM THE [employer] CHART. IT IS NOT A COPY OF THE [employer] PROGRESS NOTE. TOMER
== END ==
LOC: M PAIN 09:15
PROVIDERS: ATTEND Nurse Practitioner Family
DX: G89.29 Other chronic pain (principal); M47.817 Spondylosis without myelopathy or radiculopathy, lumbosacral region; K21.9 Gastro-esophageal reflux disease without esophagitis; J45.909 Unspecified asthma, uncomplicated; K50.90 Crohn's disease, unspecified, without complications; Z87.891 Personal history of nicotine dependence; Z79.899 Other long term (current) drug therapy; Z88.1 Allergy status to other antibiotic agents; Z88.2 Allergy status to sulfonamides

== ENCOUNTER → 2021-04-28 | Outpatient (CLI) | payer OTHER | LOC: M LABSMTC 11:33 | PROVIDERS: ATTEND Anesthesiology | DX: Z01.818 Encounter for other preprocedural examination (principal); Z11.52 Encounter for screening for COVID-19 ==

== ENCOUNTER → 2021-05-02 | Outpatient (CLI) | payer OTHER ==
[~2021-05-02] MED LIST changes: -diazePAM 2 MG TAB As Ordered ONE; +diazePAM 5MG TABLET As Ordered ONE; +methylPREDNISolone SUSP 40MG/ML 1ML VIAL (DEPO MEDROL) As Ordered ONE
--- NOTE | 2021-05-02 10:47 | REP ---
INDICATION: LUMBAR EPIDURAL STEROID INJECTION. COMPARISON: None. TECHNIQUE: Intraoperative fluoroscopic imaging using portable C-arm technique. FINDINGS: Images demonstrate catheter and contrast overlying the L5-S1 epidural space. Total fluoroscopic time 8.9 seconds. IMPRESSION: Findings consistent with lumbar epidural injection. <Electronically signed by Gian Stephens > 05/02/21 1044
--- NOTE | 2021-05-03 03:54 | ECWPNPC ---
PATIENT NAME: JAYDE METCALF : 1965 GENDER: FEMALE VISIT DATE: 05/02/2021 DISCHARGE DATE: 05/02/21 1102 VISIT LOCKED DATE TIME: PHYSICIAN: ADEEL STRATTON MD RESOURCE: ADEEL STRATTON MD REASON FOR APPOINTMENT 1. LEFT SACROILIAC JOINT BLOCK HISTORY OF PRESENT ILLNESS GENERAL: 55-YEAR-OLD FEMALE PATIENT WITH A HISTORY OF CHRONIC LOW BACK AND LEG PAIN. THE PATIENT DESCRIBES THE PAIN ACHING, BURNING, CONTINUOUS AND STABBING WITH A PAIN SCORE RANGING FROM 7-10/10 IN THE BACK WITH RADIATION TO MAINLY THE LEFT LEG. LAST WEEK, THE PATIENT TWISTED AND SUDDENLY THE PAIN IN HER BACK GOT WORSE. SHE HAS BEEN USING A MUSCLE RELAXANTS BUT THE PAIN IS STILL THERE. SHE HAS ALSO NOTICED WEAKNESS IN THE LEGS IN THE LAST FEW MONTHS. WE DID A THERAPEUTIC FACET BLOCK A FEW WEEKS AGO THAT HELPED A FEW WEEKS. FALL RISK SCREENING: SCREENING : NO FALLS REPORTED IN THE LAST YEAR. PAIN SCREENING: PATIENT HAS A COMPLAINT OF ACUTE OR CHRONIC PAIN :YES LOCATION OF PAIN:LEFT HIP, LEG(S) INTENSITY OF PAIN (SCALE OF 1 TO 10):8 WHAT DOES YOUR PAIN FEEL LIKE:ACHING, BURNING, CONTINOUS, SHARP, STABBING DURATION:CONTINOUS PAIN IS INCREASED BY:OTHERS SITTING PAIN IS DECREASED BY:USE OF PAIN MEDICATIONS NURSING NOTE: -. PAIN CENTER INTAKE QUESTIONS: DO YOU HAVE A HISTORY OF MRSA? :NO DO YOU TAKE A BLOOD THINNERS? :NO DO YOU HAVE ANY BLEEDING DISORDERS? :NO ANY NEW NUMBNESS OR WEAKNESS IN YOUR LEGS OR ARMS? :NO ANY PACEMAKER,DEFIBRILLATOR, OR DORSAL COLUMN STIMULATOR? :NO DO YOU HAVE ANY RASHES OR OPEN SORES? :NO ARE YOU ALLERGIC TO IV DYE? :NO ARE YOU DIABETIC? :NO ANY NEW PROBLEMS WITH YOUR MEDICATIONS? :NO HAVE YOU RECEIVED A VACCINE IN THE PAST 30 DAYS? :NO DO YOU PLAN TO RECEIVE A VACCINE IN THE NEXT 21 DAYS? :NO DO YOU TAKE ANY IMMUNOSUPPRESSIVE MEDICATIONS? :NO ANY HISTORY OF SEIZURES? :NO ANY HISTORY OF CARDIAC ISSUES OR EVENTS? :NO DO YOU HAVE ANY KIDNEY OR LIVER DISEASE? :NO DO YOU HAVE SLEEP APNEA? :NO ANY RECENT HEAD INJURY? :NO DO YOU HAVE ANY NEW INFECTIONS? :NO IS THERE A CHANCE YOU COULD BE ? :NO ARE YOU BREAST FEEDING? :NO WHEN DID YOU LAST EAT? : 05/01 1800 WHEN DID YOU LAST DRINK? : 05/02 600 WHAT DID YOU LAST DRINK? : WATER NAME OF PERSON DRIVING YOU HOME? : DO YOU HAVE ANY OTHER QUESTIONS OR CONCERNS? : NONE CURRENT MEDICATIONS TAKING CLARITIN 10 MG TABLET 1 TABLET ORALLY ONCE A DAY TAKING PENTASA 500 MG CAPSULE 2 CAP(S) P.O. THREE TIMES DAILY TAKING MULTIVITAMINS OTC TABLET 1 TABLET P.O. ONCE A DAY TAKING ADVAIR HFA 230-21 MCG/ACT AEROSOL 2 PUFFS P.O. DAILY AND BIDPRN, NOTES: NONE RECENT TAKING VITAMIN E 400 UNIT CAPSULE 1 CAPSULE P.O. NEEDED TAKING LIDODERM 5 % PATCH 1 PATCH TO INTACT SKIN REMOVE AFTER 12 HOURS EXTERNALLY ONCE A DAY TAKING CALCIUM 500 MG TABLET 1 TABLET P.O. TWICE A DAY TAKING MYRBETRIQ 50 MG TABLET 1 TABLET ORALLY DAILY TAKING OMEPRAZOLE 20 MG CAPSULE DELAYED RELEASE 1 CAPSULE ORALLY DAILY TAKING FLUOXETINE HCL 10 MG CAPSULE 1 CAPSULE ORALLY ONCE A DAY TAKING PROMETRIUM 100 MG CAPSULE 1 CAPSULES AT BEDTIME ORALLY ONCE A DAY TAKING ESTRACE 0.5 MG TABLET 1 TABLET ORALLY DAILY TAKING ESTRACE 0.1 MG/GM CREAM 1 GM VAGINAL TWICE A WEEK AT HS TAKING DIFLUCAN 150 MG TABLET 1 TABLET ORALLY PRN YEAST INFECTION TAKING PYRIDIUM 200 MG TABLET 1 TABLET AFTER MEALS ORALLY THREE TIMES A DAY NEEDED FOR URINARY SYMPTOMS TAKING METAXALONE 800 MG TABLET 1 TABLET ORALLY ONCE A DAY NEEDED, NOTES: NONE RECENT TAKING CYCLOBENZAPRINE HCL 10 MG TABLET 1 TAB ORALLY 3X DAILY PRN, NOTES: 05/02 600 MEDICATION LIST REVIEWED AND RECONCILED WITH THE PATIENT PAST MEDICAL HISTORY GERD ALLERGIC RHINITIS POSTMENOPAUSE W/HRT BENIGN RECTAL POLYP 09/11 COLONOSCOPY FREQ CANDIDIASIS VULVOVAG FREQUENT UTI COLD SORES BOND GENETIC TEST NEG 2019 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 LIFETIME BREAST CANCER RISK 13.6 % ASTHMA (RECHLIN) CROHN'S LOW BACK PAIN ALLERGIES MACROBID: HIVES - ALLERGY CODEINE SULFATE: HIVES - ALLERGY SOCIAL HISTORY GENERAL: TOBACCO USE ARE YOU A:FORMER SMOKER LATEX QUESTIONNAIRE LATEX ALLERGY : HAVE YOU EVER DEVELOPED ANY TYPE OF REACTION AFTER HANDLING LATEX PRODUCTS SUCH RUBBER GLOVES, CONDOMS, DIAPHRAGMS, BALLOONS, SOCKS, OR UNDERWEAR?NO LATEX ALLERGY : HAVE YOU EVER DEVELOPED ANY TYPE OF REACTION DURING OR AFTER DENTAL APPOINTMENT, VAGINAL/RECTAL EXAMINATION, SURGICAL PROCEDURE, OR ANY OTHER EXPOSURE?NO LATEX RISK : HAVE YOU EVER HAD ANY DIFFICULTY BREATHING OR HIVES AFTER EATING OR HANDLING ANY FRUITS, OR VEGETABLES; SUCH KIWI, BANANAS, STONE FRUITS, OR CHESTNUTSNO LATEX RISK : DO YOU HAVE A PREVIOUS PERSONAL HISTORY OF MORE THAN NINE SURGERIES, SPINA BIFIDA, OR REPEATED CATHERIZATIONS? NO LATEX RISK : ARE YOU FREQUENTLY EXPOSED TO LATEX PRODUCTS IN YOUR OCCUPATION?NO DATE ASKED : 05/01/2021 ALCOHOL USE: YES. ALCOHOL SCREENING DID YOU HAVE A DRINK CONTAINING ALCOHOL IN THE PAST YEAR?YES HOW OFTEN DID YOU HAVE SIX OR MORE DRINKS ON ONE OCCASION IN THE PAST YEAR?NEVER (0 POINTS) HOW MANY DRINKS DID YOU HAVE ON A TYPICAL DAY WHEN YOU WERE DRINKING IN THE PAST YEAR?1 OR 2 (0 POINTS) HOW OFTEN DID YOU HAVE A DRINK CONTAINING ALCOHOL IN THE PAST YEAR?FOUR OR MORE TIMES A WEEK (4 POINTS) POINTS4 INTERPRETATIONPOSITIVE RECREATIONAL DRUG USE DENIES. CAFFEINE CAFFEINE USE?NO SEXUAL HX HAD SEX IN THE LAST 12 MONTHS (VAGINAL, ORAL, OR ANAL)?: YES, WITH: MEN ONLY, HAVE YOU EVER HAD AN STD?: NO. HIV / HEP-C SCREENING HIV TEST OFFERED TO PATIENT:YES DATE OFFERED:09/09/2018 TEST ACCEPTED:NO REASON:PATIENT DECLINED BROCHURE PROVIDED TO PATIENTYES ORIENTAL ORTHODOX [id number] [employer]KH LANGUAGE LANGUAGES SPOKEN:POLISH EDUCATION [facility]. 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 DIET: EATS WHAT SHE WANTS, INCREASING FIBER, NO HX ED. EXERCISE: STAYS ACTIVE AT WORK. MARITAL STATUS: . OTHERS AT HOME: LIVES WITH , MOTHER. - HAS THE PATIENT BEEN EDUCATED REGARDING HIS/HER PLAN OF CARE?YES HAS THE PATIENT BEEN EDUCATED REGARDING PAIN, THE RISK FOR PAIN, THE IMPORTANCE OF EFFECTIVE PAIN MANAGEMENT, AND THE PAIN ASSESSMENT PROCESS?YES HOUSING: OWNS HOME. ADVANCE DIRECTIVE ADVANCE DIRECTIVE DISCUSSED WITH PATIENT:YES PT DOES NOT HAVE ANY ADVANCED DIRECTIVES AND DECLINES INFORMATION ON HCP AT THIS TIME REVIEW OF SYSTEMS CONSTITUTIONAL: ANY RECENT FEVER NO . CHILLS NO . WEIGHT CHANGE OF UNKNOWN REASONS NO . GASTROENTEROLOGY: NEW UNEXPLAINABLE CHANGES IN BOWEL CONTROL NO . CONSTIPATION NO . GENITOURINARY: ANY NEW CHANGE IN BLADDER CONTROL? NO . NEUROLOGY: NEW ONSET DIZZINESS OR NEUROLOGICAL CHANGES NOT MENTIONED NO . NEW NUMBNESS OR PAIN PATTERNS NOT MENTIONED AND PERTINENT TO TODAY'S VISIT NO . CARDIOLOGY: NEW CHEST PRESSURE NO . PATIENT DENIES NO . RESPIRATORY: UNEXPLAINABLE COUGH NO . NEW SHORTNESS OF BREATH NO . VITAL SIGNS WT 135.6 LBS, HT 65 IN, BMI 22.56 INDEX, BP 131/71 MM HG, HR 74 /MIN, RR 18 /MIN, TEMP 97.1 F, OXYGEN SAT % 94%, SAFE IN ENV? (Y/N) Y, NA INITIALS AW 0834, REVIEWED BY: Mayda CAMP RN. EXAMINATION GENERAL: THE PATIENT IS ALERT, ORIENTED TIMES THREE AND COOPERATIVE. LUNGS ARE CLEAR TO AUSCULTATION. HEART SHOWS REGULAR RHYTHM, NO MURMURS AND NO GALLOPS. THERE IS TENDERNESS IN THE PARASPINAL MUSCLE GROUP IN THE LOW BACK. STRAIGHT LEG RAISE IS POSITIVE FOR RADICULOPATHY ON THE LEFT AT 80 DEGREES. THE RIGHT LEG IS WEAKER THAN THE LEFT ON FLEXION AND EXTENSION. THE PATIENT SAYS WHEN SHE LIFTS HER LEGS SHE HAS WEAKNESS IN THE BACK. MRI OF THE LUMBAR SPINE SHOWS BULGING DISC ON THE LEFT AT L5-S1 WITH MODERATED FORAMINAL NARROWING. ASSESSMENTS INTERVERTEBRAL DISC DISORDERS WITH RADICULOPATHY, LUMBAR REGION - M51.16 (PRIMARY) WEAKNESS OF BOTH LOWER EXTREMITIES - R29.898, NEW ONSET TREATMENT INTERVERTEBRAL DISC DISORDERS WITH RADICULOPATHY, LUMBAR REGION [employer] [facility] FLUORO GUIDE SPINE INJECTION (PAIN)[id number] SALINE EMMA HALE 05/02/2021 9:54:04 AM > #22 SL STARTED X 1 ATTEMPT IN RIGHT AC BY THIS SCRAP PICKER. SITE ASYMPTOMATIC, FLUSHES WELL. PATIENT TOLERATED WELL. MEDICATION: VALIUM TAB 10MG ORALLY (DIAZEPAM)EMMA MURCIA 05/02/2021 9:45:41 AM > VERIFIED BATSHEVA CAMP 05/02/2021 9:48:43 AM > ADMINISTERED COMPLETION OF PROCEDURAL VISIT WHEN MEETS CRITERIADEBATSHEVA ARAGON 05/02/2021 11:02:02 AM > CRITERIA MET 1100 MED: PAIN NORCO TABLET 5MG/325MG ORALLY HYDROCODONE/ACETAMINOPHENSIDRALEJEOVANNYELISABET 05/02/2021 9:28:35 AM > GIVE 2 TABLETS TWINEMMA 05/02/2021 9:45:56 AM > VERIFIED BATSHEVA CAMP 05/02/2021 9:49:09 AM > ADMINISTERED CLINICAL NOTES: I DISCUSSED ALTERNATIVES WITH MS. METCALF. WE AGREE ON PERFORMING A LUMBAR EPIDURAL STEROID INJECTION AT L5-S1. I AM LOOKING FOR LONG LASTING PAIN RELIEF. IN THE FUTURE, WE CAN CONSIDER PERFORMING DIAGNOSTIC TESTS OVER THE FACETS WHICH WE WERE GOING TO DO TODAY. IN VIEW OF THE NEW FINDINGS, WE ARE GOING TO DO LUMBAR EPIDURAL. I ALSO WOULD LIKE TO REFER HER TO NEUROLOGY FOR A FULL NEUROLOGICAL WORKUP. SHE HAS HAD WEAKNESS OVER HER LEGS OVER THE LAST SEVERAL MONTHS. THE PATIENT REPORTS UNDERSTANDING AND AGREES WITH THE PLAN. I, ELISABET CORDERO, DOCUMENTED THE ABOVE INFORMATION ACTING A SCRIBE FOR DR. STRATTON. I HAVE REVIEWED THE ABOVE DOCUMENT, WRITTEN BY ELISABET CORDERO, HAND CROCHETER, AND I VERIFY THAT IT IS ACCURATE. REFERRAL TO:[facility] REASON:NEW LEG WEAKNESS OTHERS NOTES: PRE PROCEDURE PHONE CALL COMPLETED WITH PATIENT 05/01/2021 1033 N BHAVYA FERRER. PROCEDURES PAIN NURSING RECORD PROCEDURE IN ROOM 1012, PHYSICIAN IN ROOM 1029, START 1032, FINISH 1035, PHYSICIAN OUT OF ROOM 1037, OUT OF ROOM 1043, ECG NORMAL SINUS, PATIENT SHIELDED YES, SAFETY STRAP YES, PREP BETADINE, DRESSING TEGADERM DR. STRATTON LOC: BATSHEVA CAMP 05/02/2021 9:11:35 AM > 1. ALERT, ORIENTED BATSHEVA CAMP 05/02/2021 10:57:06 AM > 1. ALERT, ORIENTED RESP: BATSHEVA CAMP 05/02/2021 9:11:38 AM > 1. REGULAR, NO DYSPNEA BATSHEVA CAMP 05/02/2021 10:57:17 AM > 1. REGULAR, NO DYSPNEA COLOR: BATSHEVA CAMP 05/02/2021 9:11:43 AM > 1. PINK BATSHEVA CAMP 05/02/2021 10:57:25 AM > 1. PINK SKIN: BATSHEVA CAMP 05/02/2021 9:11:46 AM > 1. WARM, DRY BATSHEVA CAMP 05/02/2021 10:57:33 AM > 1. WARM, DRY POSITION: BATSHEVA CAMP 05/02/2021 9:11:49 AM > 5. SITTING BATSHEVA CAMP 05/02/2021 10:16:05 AM > 1. PRONE BATSHEVA CAMP 05/02/2021 10:57:39 AM > 5. SITTING VITALS: 1005 HR 64 02 92 110/55 AW BATSHEVA CAMP 05/02/2021 10:16:13 AM > 121/80,73,18,100% BATSHEVA CAMP 05/02/2021 10:28:17 AM > 122/83,64,16,98% BATSHEVA CAMP 05/02/2021 10:41:10 AM > 118/83, 69,16,99% BATSHEVA CAMP 05/02/2021 10:55:29 AM > 103/68,86,16,96% COMPLETION OF PROCEDURE APPOINTMENT: POST PAIN 8, DRESSING SITE DRY AND INTACT, IV DISCONTINUED, SITE CLEAR, CATHETER INTACT SL D/C'D AT 1050, GAIT STEADY, TEACHING COMPLETED, PATIENT ACKNOWLEDGES UNDERSTANDING YES, PROCEDURE APPOINTMENT COMPLETED AT 1101 BY: Mayda CAMP RN PRE PROCEDURE DIAGNOSIS LUMBOSACRAL DISC DISORDER WITH RADICULOPATHY POST PROCEDURE DIAGNOSIS LUMBOSACRAL DISC DISORDER WITH RADICULOPATHY PROCEDURE LUMBAR EPIDURAL STEROID INJECTION UNDER FLUOROSCOPIC GUIDANCE SURGEON DR. ADEEL STRATTON TASSEL MAKING MACHINE OPERATOR NONE ANESTHESIA LOCAL PRE PROCEDURE NOTE THE PATIENT HAS A HISTORY OF CHRONIC LOW BACK PAIN. I EVALUATED THE PATIENT AND REVIEWED THE CHART. I WENT OVER THE RISKS, ALTERNATIVES, AND BENEFITS ASSOCIATED WITH THIS PROCEDURE. THE PATIENT WOULD LIKE TO PROCEED AND GIVE CONSENT TO PERFORMED THE PROCEDURE. THE PATIENT DENIES UNEXPLAINABLE WEIGHT LOSS, FEVER, CHILLS, OR NEW CHANGES IN URINARY OR BOWEL CONTROL. THE PATIENT IS COVID-19 NEGATIVE DESCRIPTION OF PROCEDURE THE PATIENT WAS BROUGHT TO THE PROCEDURE ROOM AND PLACED IN THE PRONE POSITION. THE LUMBOSACRAL AREA WAS CLEANED WITH BETADINE SOLUTION AND DRAPED ASEPTICALLY. THE PROCEDURE WAS DONE UNDER STERILE CONDITIONS. A TIMEOUT WAS PERFORMED WHERE THE CONSENTED SITE WAS VERIFIED WITH EVERYONE IN THE ROOM. UNDER FLUOROSCOPIC GUIDANCE, THE TARGET POINT WAS SELECTED AT THE INTERLAMINAR LEVEL OF L5-S1. I CONFIRMED AGAIN THE SITE OF TARGET. LIDOCAINE WAS USED TO NUMB THE SKIN AND THE SUBCUTANEOUS TISSUE BELOW IT. EPIDURAL TUOHY NEEDLE, 17-GAUGE, WAS ADVANCED UNDER FLUOROSCOPIC GUIDANCE AND FOLLOWING PATIENT FEEDBACK UNTIL THE EPIDURAL SPACE WAS REACHED 5 CM DEEP INTO THE SKIN BY THE LOSS OF RESISTANCE TECHNIQUE. ISOVUE-M DYE 30%, 0.25 ML, WAS INJECTED SHOWING ADEQUATE SPREAD OF THE DYE. THEN, A SOLUTION OF 3 ML OF NORMAL SALINE WITH DEPO-MEDROL 40 MG WAS INJECTED SLOWLY FOLLOWING PATIENT FEEDBACK. THE MEDICATIONS WERE VERIFIED WITH THE NURSE. THERE WAS NO EVIDENCE OF BLOOD, PARESTHESIA OR CEREBROSPINAL FLUID DURING THE PROCEDURE. THE PATIENT WAS SENT TO THE RECOVERY ROOM. THE PATIENT WAS MOVING THE EXTREMITIES AND DOING WELL. THERE WERE NO COMPLICATIONS DURING THE PROCEDURE. ESTIMATED BLOOD LOSS WAS LESS THAN 5 ML. FLUOROSCOPY TIME WAS 8 SECONDS POST PROCEDURE NOTE THE PATIENT WILL BE SEEN IN A FOLLOW UP IN THE NEXT FEW WEEKS. I AM LOOKING FOR LONG LASTING RELIEF FOR THE PATIENT WITH THIS INTERVENTION. INSTRUCTIONS WERE GIVEN, QUESTIONS WERE ANSWERED, AND THE PATIENT EXPRESSED UNDERSTANDING AND AGREES WITH THE PLAN. I, ELISABET CORDERO, DOCUMENTED THE ABOVE INFORMATION ACTING A SCRIBE FOR DR. STRATTON. I HAVE REVIEWED THE ABOVE DOCUMENT, WRITTEN BY ELISABET CORDERO, HAND CROCHETER, AND I VERIFY THAT IT IS ACCURATE PROCEDURE CODES [id number] LUMBAR/SACRAL W/ IMAGING DISPOSITION & COMMUNICATION FOLLOW UP FOLLOW UP WITH ALLOCATION ANALYST (REASON: POST LUMBAR EPIDURAL STEROID INJECTION) ELECTRONICALLY SIGNED BY ADEEL STRATTON MD, MD ON 05/02/2021 AT 02:45 PM EDT DISCLAIMER : THIS IS A VISIT SUMMARY EXTRACTED FROM THE [employer] CHART. IT IS NOT A COPY OF THE [employer] PROGRESS NOTE. MTDD
== END ==
LOC: M PAIN 08:30
PROVIDERS: ATTEND Anesthesiology
DX: M51.16 Intervertebral disc disorders with radiculopathy, lumbar region (principal); R29.898 Other symptoms and signs involving the musculoskeletal system; K21.9 Gastro-esophageal reflux disease without esophagitis; J45.909 Unspecified asthma, uncomplicated; Z87.891 Personal history of nicotine dependence; Z79.899 Other long term (current) drug therapy; Z88.1 Allergy status to other antibiotic agents; Z88.5 Allergy status to narcotic agent
CPT/HCPCS: 62323; J1030; Q9967

== ENCOUNTER → 2021-05-09 | Outpatient (CLI) | payer OTHER ==
--- NOTE | 2021-05-12 23:13 | ECWPNPC ---
PATIENT NAME: JAYDE METCALF : 1965 GENDER: FEMALE VISIT DATE: 05/09/2021 DISCHARGE DATE: 05/09/21906 VISIT LOCKED DATE TIME: PHYSICIAN: MAGALY HAHN RESOURCE: MAGALY HAHN REASON FOR APPOINTMENT 1. POST LESI HISTORY OF PRESENT ILLNESS GENERAL: HERE FOR POST PROCEDURE FOLLOW-UP. HAD LUMBAR EPIDURAL STEROID INJECTION ON 05/02/2021. REPORTING IMPROVEMENT IN HER PAIN POST PROCEDURE. THIS CONTINUES TODAY. HAS NOT NEEDED TO TAKE HER PAIN MEDICATIONS. I STARTED HER ON CYCLOBENZAPRINE 10 MG UP TO 3 TIMES DAILY FOR SEVERE INCREASE IN LEFT LOW BACK PAIN A FEW WEEKS AGO. THIS HELPED HER DRAMATICALLY. SHE WOULD LIKE TO HAVE ON HAND IF NEEDED FOR SEVERE PAIN EPISODES. DR. STRATTON REFERRED HER TO NEUROLOGY BECAUSE OF COMPLAINTS OVER THE PAST FEW MONTHS OF GENERALIZED WEAKNESS AND NUMBNESS IN HER EXTREMITIES. SHE HAS AN APPOINTMENT COMING UP WITH NEUROLOGY IN THE NEXT WEEK OR 2. WE WILL CONSIDER DIAGNOSTIC LUMBAR FACET BLOCK AND RADIOFREQUENCY ONCE WE REVIEW NEUROLOGY CONSULT. -. FALL RISK SCREENING: SCREENING : NO FALLS REPORTED IN THE LAST YEAR. PAIN SCREENING: PATIENT HAS A COMPLAINT OF ACUTE OR CHRONIC PAIN :YES LOCATION OF PAIN:LOW BACK INTENSITY OF PAIN (SCALE OF 1 TO 10):4 WHAT DOES YOUR PAIN FEEL LIKE:OTHER PULLING DURATION:CONTINOUS, CONSTANT PAIN IS INCREASED BY:ACTIVITIES, OTHERS SITTING PAIN IS DECREASED BY:USE OF PAIN MEDICATIONS NURSING NOTE: -. PAIN CENTER INTAKE QUESTIONS: DO YOU HAVE A HISTORY OF MRSA? :NO DO YOU TAKE A BLOOD THINNERS? :NO DO YOU HAVE ANY BLEEDING DISORDERS? :NO ANY NEW NUMBNESS OR WEAKNESS IN YOUR LEGS OR ARMS? :YES BOTH ARMS AND LEGS ANY PACEMAKER,DEFIBRILLATOR, OR DORSAL COLUMN STIMULATOR? :NO DO YOU HAVE ANY RASHES OR OPEN SORES? :NO ARE YOU ALLERGIC TO IV DYE? :NO ARE YOU DIABETIC? :NO ANY NEW PROBLEMS WITH YOUR MEDICATIONS? :NO HAVE YOU RECEIVED A VACCINE IN THE PAST 30 DAYS? :NO DO YOU PLAN TO RECEIVE A VACCINE IN THE NEXT 21 DAYS? :NO DO YOU NEED ANY PRESCRIPTION? :NO DO YOU TAKE ANY IMMUNOSUPPRESSIVE MEDICATIONS? :NO CURRENT MEDICATIONS TAKING CLARITIN 10 MG TABLET 1 TABLET ORALLY ONCE A DAY TAKING PENTASA 500 MG CAPSULE 2 CAP(S) P.O. THREE TIMES DAILY TAKING MULTIVITAMINS OTC TABLET 1 TABLET P.O. ONCE A DAY TAKING ADVAIR HFA 230-21 MCG/ACT AEROSOL 2 PUFFS P.O. DAILY AND BIDPRN, NOTES: NONE RECENT TAKING VITAMIN E 400 UNIT CAPSULE 1 CAPSULE P.O. NEEDED TAKING LIDODERM 5 % PATCH 1 PATCH TO INTACT SKIN REMOVE AFTER 12 HOURS EXTERNALLY ONCE A DAY TAKING CALCIUM 500 MG TABLET 1 TABLET P.O. TWICE A DAY TAKING MYRBETRIQ 50 MG TABLET 1 TABLET ORALLY DAILY TAKING OMEPRAZOLE 20 MG CAPSULE DELAYED RELEASE 1 CAPSULE ORALLY DAILY TAKING FLUOXETINE HCL 10 MG CAPSULE 1 CAPSULE ORALLY ONCE A DAY TAKING PROMETRIUM 100 MG CAPSULE 1 CAPSULES AT BEDTIME ORALLY ONCE A DAY TAKING ESTRACE 0.5 MG TABLET 1 TABLET ORALLY DAILY TAKING ESTRACE 0.1 MG/GM CREAM 1 GM VAGINAL TWICE A WEEK AT HS TAKING DIFLUCAN 150 MG TABLET 1 TABLET ORALLY PRN YEAST INFECTION TAKING PYRIDIUM 200 MG TABLET 1 TABLET AFTER MEALS ORALLY THREE TIMES A DAY NEEDED FOR URINARY SYMPTOMS TAKING METAXALONE 800 MG TABLET 1 TABLET ORALLY ONCE A DAY NEEDED TAKING CYCLOBENZAPRINE HCL 10 MG TABLET 1 TAB ORALLY 3X DAILY PRN MEDICATION LIST REVIEWED AND RECONCILED WITH THE PATIENT PAST MEDICAL HISTORY GERD ALLERGIC RHINITIS POSTMENOPAUSE W/HRT BENIGN RECTAL POLYP 09/11 COLONOSCOPY FREQ CANDIDIASIS VULVOVAG FREQUENT UTI COLD SORES Comic Reply GENETIC TEST NEG 2019 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 LIFETIME BREAST CANCER RISK 13.6 % ASTHMA (ROXANNE) CROHN'S LOW BACK PAIN ALLERGIES MACROBID: HIVES - ALLERGY CODEINE SULFATE: HIVES - ALLERGY SOCIAL HISTORY GENERAL: TOBACCO USE ARE YOU A:FORMER SMOKER HOW LONG HAS IT BEEN SINCE YOU LAST SMOKED?5-10 YEARS LATEX QUESTIONNAIRE LATEX ALLERGY : HAVE YOU EVER DEVELOPED ANY TYPE OF REACTION AFTER HANDLING LATEX PRODUCTS SUCH RUBBER GLOVES, CONDOMS, DIAPHRAGMS, BALLOONS, SOCKS, OR UNDERWEAR?NO LATEX ALLERGY : HAVE YOU EVER DEVELOPED ANY TYPE OF REACTION DURING OR AFTER DENTAL APPOINTMENT, VAGINAL/RECTAL EXAMINATION, SURGICAL PROCEDURE, OR ANY OTHER EXPOSURE?NO LATEX RISK : HAVE YOU EVER HAD ANY DIFFICULTY BREATHING OR HIVES AFTER EATING OR HANDLING ANY FRUITS, OR VEGETABLES; SUCH KIWI, BANANAS, STONE FRUITS, OR CHESTNUTSNO LATEX RISK : DO YOU HAVE A PREVIOUS PERSONAL HISTORY OF MORE THAN NINE SURGERIES, SPINA BIFIDA, OR REPEATED CATHERIZATIONS? NO LATEX RISK : ARE YOU FREQUENTLY EXPOSED TO LATEX PRODUCTS IN YOUR OCCUPATION?NO DATE ASKED : 05/09/2021 ALCOHOL USE: YES. ALCOHOL SCREENING DID YOU HAVE A DRINK CONTAINING ALCOHOL IN THE PAST YEAR?YES HOW OFTEN DID YOU HAVE SIX OR MORE DRINKS ON ONE OCCASION IN THE PAST YEAR?NEVER (0 POINTS) HOW MANY DRINKS DID YOU HAVE ON A TYPICAL DAY WHEN YOU WERE DRINKING IN THE PAST YEAR?1 OR 2 (0 POINTS) HOW OFTEN DID YOU HAVE A DRINK CONTAINING ALCOHOL IN THE PAST YEAR?FOUR OR MORE TIMES A WEEK (4 POINTS) POINTS4 INTERPRETATIONPOSITIVE RECREATIONAL DRUG USE DENIES. CAFFEINE CAFFEINE USE?NO SEXUAL HX HAD SEX IN THE LAST 12 MONTHS (VAGINAL, ORAL, OR ANAL)?: YES, WITH: MEN ONLY, HAVE YOU EVER HAD AN STD?: NO. HIV / HEP-C SCREENING HIV TEST OFFERED TO PATIENT:YES DATE OFFERED:09/09/2018 TEST ACCEPTED:NO REASON:PATIENT DECLINED BROCHURE PROVIDED TO PATIENTYES CONGREGATION [id number] RESTORATIONISM LANGUAGE LANGUAGES SPOKEN:[employer] EDUCATION [facility]. 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 DIET: EATS WHAT SHE WANTS, INCREASING FIBER, NO HX ED. EXERCISE: STAYS ACTIVE AT WORK. MARITAL STATUS: . OTHERS AT HOME: LIVES WITH , MOTHER. - HAS THE PATIENT BEEN EDUCATED REGARDING HIS/HER PLAN OF CARE?YES HAS THE PATIENT BEEN EDUCATED REGARDING PAIN, THE RISK FOR PAIN, THE IMPORTANCE OF EFFECTIVE PAIN MANAGEMENT, AND THE PAIN ASSESSMENT PROCESS?YES HOUSING: OWNS HOME. ADVANCE DIRECTIVE ADVANCE DIRECTIVE DISCUSSED WITH PATIENT:YES PT DOES NOT HAVE ANY ADVANCED DIRECTIVES AND DECLINES INFORMATION ON HCP AT THIS TIME REVIEW OF SYSTEMS CONSTITUTIONAL: ANY RECENT FEVER NO . CHILLS NO . WEIGHT CHANGE OF UNKNOWN REASONS NO . GASTROENTEROLOGY: NEW UNEXPLAINABLE CHANGES IN BOWEL CONTROL NO . CONSTIPATION NO . GENITOURINARY: ANY NEW CHANGE IN BLADDER CONTROL? NO . NEUROLOGY: NEW ONSET DIZZINESS OR NEUROLOGICAL CHANGES NOT MENTIONED NO . NEW NUMBNESS OR PAIN PATTERNS NOT MENTIONED AND PERTINENT TO TODAY'S VISIT NO . CARDIOLOGY: NEW CHEST PRESSURE NO . PATIENT DENIES NO . RESPIRATORY: UNEXPLAINABLE COUGH NO . NEW SHORTNESS OF BREATH NO . VITAL SIGNS WT 135.4 LBS, HT 65 IN, BMI 22.53 INDEX, BP 127/75 MM HG, HR 90 /MIN, RR 18 /MIN, TEMP 96.0 F, OXYGEN SAT % 100%, SAFE IN ENV? (Y/N) YES, NA INITIALS AW 0845T.MARY MA. EXAMINATION GENERAL EXAMINATION: GENERALAWAKE,ALERT ,PLEASANT . PSYCHAFFECT NORMAL . LUNGS:LUNG FABIAN ARE CLEAR TO AUSCULTATION BILATERALLY. GOOD MOVEMENT OF AIR . HEART:S1, S2 IN A REGULAR RATE AND RHYTHM. NO SIGNIFICANT MURMURS, RUBS OR GALLOPS NOTED . ASSESSMENTS OTHER CHRONIC PAIN - G89.29 (PRIMARY) INTERVERTEBRAL DISC DISORDERS WITH RADICULOPATHY, LUMBAR REGION - M51.16 TREATMENT OTHER CHRONIC PAIN REFILL CYCLOBENZAPRINE HCL TABLET, 10 MG, 1 TAB, ORALLY, 3X DAILY PRN, 90 DAY(S), 90, REFILLS 1 PAIN PROCEDURE LOGDATE OF PROCEDURE1PROCEDURE:LUMBAR EPIDURAL STEROID INJECTIONAMOUNT OF PRE SEDATEVALIUM 10MG, NORCO 5/325MGRESULT:SIGNIFICANT REDUCTION IN PAIN CONTINUES TODAY NOTES: ADVISED TO CONTINUE USE OF CYCLOBENZAPRINE 10 MG TABLET PERIODICALLY FOR SEVERE PAIN EPISODES THIS HAS PROVEN TO BE VERY HELPFUL FOR HER. CONTINUE USE OF ACETAMINOPHEN WHEN NECESSARY FOR SEVERE PAIN. WE WILL SEE PATIENT BACK IN 6 WEEKS AND REVIEW NEUROLOGY CONSULT FOR GENERALIZED WEAKNESS AND NUMBNESS IN THE EXTREMITIES. PROCEDURE CODES FA211 ESTABILISHED PATIENT [facility] CHARGE DISPOSITION & COMMUNICATION FOLLOW UP 6 WEEKS (REASON: F/U NEURO CONSULT/CONSIDER [id number]) ELECTRONICALLY SIGNED BY WILLIAM AYALA ON 05/12/2021 AT 08:10 PM EDT DISCLAIMER : THIS IS A VISIT SUMMARY EXTRACTED FROM THE [employer] CHART. IT IS NOT A COPY OF THE [employer] PROGRESS NOTE. TOMER
== END ==
LOC: M PAIN 08:45
PROVIDERS: ATTEND Nurse Practitioner Family
DX: G89.29 Other chronic pain (principal); M51.16 Intervertebral disc disorders with radiculopathy, lumbar region; K21.9 Gastro-esophageal reflux disease without esophagitis; J45.909 Unspecified asthma, uncomplicated; K50.90 Crohn's disease, unspecified, without complications; Z87.891 Personal history of nicotine dependence; Z79.899 Other long term (current) drug therapy; Z88.1 Allergy status to other antibiotic agents; Z88.5 Allergy status to narcotic agent

== ENCOUNTER → 2021-07-02 | Outpatient (CLI) | payer OTHER ==
--- NOTE | 2021-07-03 01:06 | ECWPNPC ---
PATIENT NAME: JAYDE METCALF : 1965 GENDER: FEMALE VISIT DATE: 07/02/2021 DISCHARGE DATE: 07/02/21906 VISIT LOCKED DATE TIME: PHYSICIAN: MAGALY HAHN RESOURCE: MAGALY HAHN REASON FOR APPOINTMENT 1. F/U NEURO CONSULT/CONSIDER LFBDX HISTORY OF PRESENT ILLNESS GENERAL: HERE FOR FOLLOW-UP OF CHRONIC LOW BACK PAIN. CONTINUES TO BENEFIT FROM EPIDURAL STEROID INJECTION THAT WAS DONE IN APRIL. STATES SINCE EPIDURALSHE DOES NOT HAVE LEG COMPLAINTS. ON EXAM TODAY SHE HAS NUMBNESS AND TINGLING WITH LIGHT PALPATION OVER LEFT LEG IN ITS ENTIRETY. FOLLOWING WITH [facility] PER DR. 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 THEY RECENTLY HAVE DONE NERVE CONDUCTION STUDIES OF HER UPPER EXTREMITIES AND SHE HAS SCHEDULED LAB WORK AND IMAGING STUDIES OF HER ENTIRE SPINE. SHE FOLLOWS UP WITH THEM IN AUGUST. CONTINUES TO HAVE GENERALIZED MUSCLE SPASM TYPE PAIN ACROSS LOWER BACK. SHE IS TAKING CYCLOBENZAPRINE ONCE A DAY THAT IS HELPFUL. DISCUSSED TREATMENT PLAN.-. FALL RISK SCREENING: SCREENING : NO FALLS REPORTED IN THE LAST YEAR. PAIN SCREENING: PATIENT HAS A COMPLAINT OF ACUTE OR CHRONIC PAIN :YES LOCATION OF PAIN:LOW BACK INTENSITY OF PAIN (SCALE OF 1 TO 10):5 WHAT DOES YOUR PAIN FEEL LIKE:ACHING, BURNING, STABBING, TENDER, SORE, SHOOTING DURATION:CONTINOUS, CONSTANT, ALL DAY PAIN IS INCREASED BY:ACTIVITIES PAIN IS DECREASED BY:USE OF PAIN MEDICATIONS NURSING NOTE: -. PAIN CENTER INTAKE QUESTIONS: DO YOU HAVE A HISTORY OF MRSA? :NO DO YOU TAKE A BLOOD THINNERS? :NO DO YOU HAVE ANY BLEEDING DISORDERS? :NO ANY NEW NUMBNESS OR WEAKNESS IN YOUR LEGS OR ARMS? :YES BOTH ARMS AND LEGS- SOMETIMES ANY PACEMAKER,DEFIBRILLATOR, OR DORSAL COLUMN STIMULATOR? :NO DO YOU HAVE ANY RASHES OR OPEN SORES? :NO ARE YOU ALLERGIC TO IV DYE? :NO ARE YOU DIABETIC? :NO ANY NEW PROBLEMS WITH YOUR MEDICATIONS? :NO HAVE YOU RECEIVED A VACCINE IN THE PAST 30 DAYS? :NO DO YOU PLAN TO RECEIVE A VACCINE IN THE NEXT 21 DAYS? :NO DO YOU NEED ANY PRESCRIPTION? :NO DO YOU TAKE ANY IMMUNOSUPPRESSIVE MEDICATIONS? :NO CURRENT MEDICATIONS TAKING CLARITIN 10 MG TABLET 1 TABLET ORALLY ONCE A DAY TAKING PENTASA 500 MG CAPSULE 2 CAP(S) P.O. THREE TIMES DAILY TAKING MULTIVITAMINS OTC TABLET 1 TABLET P.O. ONCE A DAY TAKING ADVAIR HFA 230-21 MCG/ACT AEROSOL 2 PUFFS P.O. DAILY AND BIDPRN, NOTES: NONE RECENT TAKING VITAMIN E 400 UNIT CAPSULE 1 CAPSULE P.O. NEEDED TAKING LIDODERM 5 % PATCH 1 PATCH TO INTACT SKIN REMOVE AFTER 12 HOURS EXTERNALLY ONCE A DAY TAKING CALCIUM 500 MG TABLET 1 TABLET P.O. TWICE A DAY TAKING MYRBETRIQ 50 MG TABLET 1 TABLET ORALLY DAILY TAKING OMEPRAZOLE 20 MG CAPSULE DELAYED RELEASE 1 CAPSULE ORALLY DAILY TAKING FLUOXETINE HCL 10 MG CAPSULE 1 CAPSULE ORALLY ONCE A DAY TAKING PROMETRIUM 100 MG CAPSULE 1 CAPSULES AT BEDTIME ORALLY ONCE A DAY TAKING ESTRACE 0.5 MG TABLET 1 TABLET ORALLY DAILY TAKING ESTRACE 0.1 MG/GM CREAM 1 GM VAGINAL TWICE A WEEK AT HS TAKING DIFLUCAN 150 MG TABLET 1 TABLET ORALLY PRN YEAST INFECTION TAKING PYRIDIUM 200 MG TABLET 1 TABLET AFTER MEALS ORALLY THREE TIMES A DAY NEEDED FOR URINARY SYMPTOMS TAKING METAXALONE 800 MG TABLET 1 TABLET ORALLY ONCE A DAY NEEDED TAKING CYCLOBENZAPRINE HCL 10 MG TABLET 1 TAB ORALLY 3X DAILY PRN TAKING MYRBETRIQ 50 MG TABLET EXTENDED RELEASE 24 HOUR TAKE 1 TABLET BY MOUTH DAILY MEDICATION LIST REVIEWED AND RECONCILED WITH THE PATIENT PAST MEDICAL HISTORY GERD ALLERGIC RHINITIS POSTMENOPAUSE W/HRT BENIGN RECTAL POLYP 09/11 COLONOSCOPY FREQ CANDIDIASIS VULVOVAG FREQUENT UTI COLD SORES [employer] GENETIC TEST NEG 2019 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 LIFETIME BREAST CANCER RISK 13.6 % ASTHMA (RECHLIN) CROHN'S LOW BACK PAIN ALLERGIES MACROBID: HIVES - ALLERGY CODEINE SULFATE: HIVES - ALLERGY SOCIAL HISTORY GENERAL: TOBACCO USE ARE YOU A:FORMER SMOKER HOW LONG HAS IT BEEN SINCE YOU LAST SMOKED?5-10 YEARS LATEX QUESTIONNAIRE LATEX ALLERGY : HAVE YOU EVER DEVELOPED ANY TYPE OF REACTION AFTER HANDLING LATEX PRODUCTS SUCH RUBBER GLOVES, CONDOMS, DIAPHRAGMS, BALLOONS, SOCKS, OR UNDERWEAR?NO LATEX ALLERGY : HAVE YOU EVER DEVELOPED ANY TYPE OF REACTION DURING OR AFTER DENTAL APPOINTMENT, VAGINAL/RECTAL EXAMINATION, SURGICAL PROCEDURE, OR ANY OTHER EXPOSURE?NO LATEX RISK : HAVE YOU EVER HAD ANY DIFFICULTY BREATHING OR HIVES AFTER EATING OR HANDLING ANY FRUITS, OR VEGETABLES; SUCH KIWI, BANANAS, STONE FRUITS, OR CHESTNUTSNO LATEX RISK : DO YOU HAVE A PREVIOUS PERSONAL HISTORY OF MORE THAN NINE SURGERIES, SPINA BIFIDA, OR REPEATED CATHERIZATIONS? NO LATEX RISK : ARE YOU FREQUENTLY EXPOSED TO LATEX PRODUCTS IN YOUR OCCUPATION?NO DATE ASKED : 07/02/2021 ALCOHOL USE: YES. ALCOHOL SCREENING DID YOU HAVE A DRINK CONTAINING ALCOHOL IN THE PAST YEAR?YES HOW OFTEN DID YOU HAVE A DRINK CONTAINING ALCOHOL IN THE PAST YEAR?FOUR OR MORE TIMES A WEEK (4 POINTS) HOW MANY DRINKS DID YOU HAVE ON A TYPICAL DAY WHEN YOU WERE DRINKING IN THE PAST YEAR?1 OR 2 (0 POINTS) HOW OFTEN DID YOU HAVE SIX OR MORE DRINKS ON ONE OCCASION IN THE PAST YEAR?NEVER (0 POINTS) POINTS4 INTERPRETATIONPOSITIVE RECREATIONAL DRUG USE DENIES. CAFFEINE CAFFEINE USE?NO SEXUAL HX HAD SEX IN THE LAST 12 MONTHS (VAGINAL, ORAL, OR ANAL)?: YES, WITH: MEN ONLY, HAVE YOU EVER HAD AN STD?: NO. HIV / HEP-C SCREENING HIV TEST OFFERED TO PATIENT:YES DATE OFFERED:09/09/2018 TEST ACCEPTED:NO REASON:PATIENT DECLINED BROCHURE PROVIDED TO PATIENTYES CHURCH [id number] WORSHIP LANGUAGE LANGUAGES SPOKEN:[place]AYSI[place] EDUCATION [facility]. 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 DIET: EATS WHAT SHE WANTS, INCREASING FIBER, NO HX ED. EXERCISE: STAYS ACTIVE AT WORK. MARITAL STATUS: . OTHERS AT HOME: LIVES WITH , MOTHER. - HAS THE PATIENT BEEN EDUCATED REGARDING HIS/HER PLAN OF CARE?YES HAS THE PATIENT BEEN EDUCATED REGARDING PAIN, THE RISK FOR PAIN, THE IMPORTANCE OF EFFECTIVE PAIN MANAGEMENT, AND THE PAIN ASSESSMENT PROCESS?YES HOUSING: OWNS HOME. ADVANCE DIRECTIVE ADVANCE DIRECTIVE DISCUSSED WITH PATIENT:YES PT DOES NOT HAVE ANY ADVANCED DIRECTIVES AND DECLINES INFORMATION ON HCP AT THIS TIME REVIEW OF SYSTEMS CONSTITUTIONAL: ANY RECENT FEVER NO . CHILLS NO . WEIGHT CHANGE OF UNKNOWN REASONS NO . GASTROENTEROLOGY: NEW UNEXPLAINABLE CHANGES IN BOWEL CONTROL NO . CONSTIPATION NO . GENITOURINARY: ANY NEW CHANGE IN BLADDER CONTROL? NO . NEUROLOGY: NEW ONSET DIZZINESS OR NEUROLOGICAL CHANGES NOT MENTIONED NO . NEW NUMBNESS OR PAIN PATTERNS NOT MENTIONED AND PERTINENT TO TODAY'S VISIT NO . CARDIOLOGY: NEW CHEST PRESSURE NO . PATIENT DENIES NO . RESPIRATORY: UNEXPLAINABLE COUGH NO . NEW SHORTNESS OF BREATH NO . VITAL SIGNS WT 137 LBS, WT-KG 62.14 KG, HT 65 IN, BMI 22.80 INDEX, BP 121/68 MM HG, HR 74 /MIN, RR 18 /MIN, TEMP 97.2 F, OXYGEN SAT % 97%, SAFE IN ENV? (Y/N) YEST.MARY CRANDALL EXAMINATION GENERAL EXAMINATION: GENERAL AWAKE,ALERT ,PLEAASANT . PSYCH AFFECT NORMAL . LUNGS: LUNG FABIAN ARE CLEAR TO AUSCULTATION BILATERALLY. GOOD MOVEMENT OF AIR . HEART: S1, S2 IN A REGULAR RATE AND RHYTHM. NO SIGNIFICANT MURMURS, RUBS OR GALLOPS NOTED . MUSCULOSKELETAL: MUSCLE STRENGTH TESTING 5/5 BILATERAL LOWER EXTREMITIES. LUMBAR: TRIGGER POINTS:, ELICITED WITH PALPATION OVER LUMBAR PARAVERTEBRAL MUSCLES. RANGE OF JOINT MOTION OF THE SPINE AGGRAVATES PAIN IN THIS REGION. . NEUROLOGIC EXAM:NUMBNESS AND TINGLING WITH PALPATION OVER LEFT LEG IN ITS ENTIRETY.. ASSESSMENTS MYALGIA, OTHER SITE - M79.18 (PRIMARY) TREATMENT MYALGIA, OTHER SITE MEDICATION: PAIN VALIUM TAB 10MG ORALLY (DIAZEPAM) (ORDERED FOR 07/16/2021)[id number] MED: PAIN NORCO TABLET 5MG/325MG ORALLY HYDROCODONE/ACETAMINOPHEN (ORDERED FOR 07/16/2021)[id number] MED: PAIN ZOFRAN ODT TAB 4MG DISSOLVE ON TONGUE ONDANSETRON (ORDERED FOR 07/16/2021)[id number] NOTES: TRIGGER POINT INJECTIONS BILATERAL LOW BACK REVIEWED PRE PROCEDURE INFORMATION, PATIENT VERBALIZED UNDERSTANDING DIANNA CRANDALL PROCEDURE CODES FA211 ESTABILISHED PATIENT [facility] CHARGE DISPOSITION & COMMUNICATION FOLLOW UP POST (REASON: TRIGGER POINT INJECTIONS BILATERAL LOW BACK) ELECTRONICALLY SIGNED BY WILLIAM AYALA ON 07/02/2021 AT 01:11 PM EDT DISCLAIMER : THIS IS A VISIT SUMMARY EXTRACTED FROM THE [employer] CHART. IT IS NOT A COPY OF THE [employer] PROGRESS NOTE. MTDD
== END ==
LOC: M PAIN 08:30
PROVIDERS: ATTEND Nurse Practitioner Family
DX: M79.18 Myalgia, other site (principal); K21.9 Gastro-esophageal reflux disease without esophagitis; J45.909 Unspecified asthma, uncomplicated; K50.90 Crohn's disease, unspecified, without complications; M54.5 Low back pain; Z87.891 Personal history of nicotine dependence; Z79.899 Other long term (current) drug therapy; Z88.1 Allergy status to other antibiotic agents; Z88.5 Allergy status to narcotic agent

== ENCOUNTER → 2021-07-05 | Outpatient (CLI) | payer OTHER ==
[2021-07-05 15:54] LABS: CPK CREATINE PHOSPHOKINASE 97 U/L (26-192); RHEUMATOID FACTOR QUANT < 10.0 IU/ML (<15.0)
[2021-07-05 17:21] LABS: HEMOGLOBIN A1c 5.6 %
[2021-07-15 13:08] LABS: ACETYLCHOLINE RCPTOR BINDING A < 0.03 nmol/L (0.00-0.24); ANTINUCLEAR ANTIBODIES DIRECT Negative (Negative); Lyme Disease IgG/IgM Antibodie <0.91 ISR (0.00-0.90); Lyme Disease IgM Ab Quantitati <0.80 index (0.00-0.79); STRIATIONAL ANTIBODIES Negative (Neg:<1:40); VGCC ANTIBODY Negative (Negative); VITAMIN B1 LEVEL WHOLE BLOOD 158.2 nmol/L (66.5-200.0); VITAMIN E(ALPHA TOCOPHEROL) 12.7 mg/L (7.0-25.1); VITAMIN E(GAMMA TOCOPHEROL) 1.3 mg/L (0.5-5.5)
== END ==
LOC: M LAB 14:11
PROVIDERS: ATTEND Psychiatry & Neurology Neurology
DX: R53.1 Weakness (principal); R20.2 Paresthesia of skin

== ENCOUNTER → 2021-07-29 | Outpatient (CLI) | payer OTHER ==
[~2021-07-29] MED LIST changes: -BUPIVACAINE HCL 0.25% 30ML VIAL As Ordered ONE; -ISOVUE-M 300 61% 15ML VIAL As Ordered ONE; -LIDOCAINE 1% SDV 30ML VIAL As Ordered ONE; -NORCO, ANEXSIA 5/325MG TABLET (HYDROcodone/ACETAMINOPHEN) As Ordered ONE; +PROHANCE 279.3MG/ML 15ML VIAL As Ordered ONE; -TRIAMCINOLONE ACETONIDE SUSP 40 MG/ML VIAL (J3301) As Ordered ONE; -diazePAM 5MG TABLET As Ordered ONE; -methylPREDNISolone SUSP 40MG/ML 1ML VIAL (DEPO MEDROL) As Ordered ONE
--- NOTE | 2021-07-29 19:16 | REPVR ---
PROCEDURE INFORMATION: Exam: MR Thoracic Spine Without and With Contrast Exam date and time: 07/29/2021 5:01 PM Age: 56 years old Clinical indication: Numbness and weakness TECHNIQUE: Imaging protocol: Multiplanar magnetic resonance images of the thoracic spine without and with contrast. Contrast material: PROHANCE; Contrast volume: 12 ml; Contrast route: INTRAVENOUS (IV); COMPARISON: XA FLUORO GUIDE SPINE INJECTION 05/02/2021 10:22 AM FINDINGS: Thoracic vertebral body heights are maintained. No abnormal marrow signal. No cord compression. No abnormal cord signal. Thoracic kyphosis is preserved. Thoracic disc space heights are unremarkable. Soft tissues are unremarkable. No abnormal enhancement in the thoracic spine. IMPRESSION: No acute findings in the thoracic spine. Electronically signed by: Jr Granda On 07/29/2021 19:16:25 PM
--- NOTE | 2021-07-29 19:19 | REPVR ---
PROCEDURE INFORMATION: Exam: MR Cervical Spine Without and With Contrast Exam date and time: 07/29/2021 5:01 PM Age: 56 years old Clinical indication: Disturbance of skin sensation and numbness and weakness; Paresthesia of skin; Additional info: Weakness, numbness of skin, cervicalgia- labs first TECHNIQUE: Imaging protocol: Multiplanar magnetic resonance images of the cervical spine without and with contrast. Contrast material: PROHANCE; Contrast volume: 12 ml; Contrast route: INTRAVENOUS (IV); COMPARISON: XA FLUORO GUIDE SPINE INJECTION 05/02/2021 10:22 AM FINDINGS: Cervical vertebral body heights are intact. Straightening of the cervical lordosis. The dens is intact. No abnormal marrow signal. No cord compression, expansion, or abnormal cord signal. No abnormal enhancement in the cervical spine. Visualized structures of the posterior fossa are unremarkable. Soft tissues are unremarkable. C2-C3: No significant canal or foraminal narrowing. C3-C4: No significant canal or foraminal narrowing. C4-C5: Posterior disc protrusion and uncovertebral spurring cause mild canal narrowing and moderate left foraminal narrowing. C5-C6: Posterior disc protrusion and uncovertebral spurring cause mild canal narrowing and mild bilateral foraminal narrowing. C6-C7: Minimal posterior disc protrusion without significant canal or foraminal narrowing. C7-T1: No significant canal or foraminal narrowing. IMPRESSION: Multilevel spondylotic changes of the cervical spine, as detailed above. Electronically signed by: Jr Granda On 07/29/2021 19:18:57 PM
== END ==
LOC: M RAD 15:06
PROVIDERS: ATTEND Psychiatry & Neurology Neurology
DX: R93.7 Abnormal findings on diagnostic imaging of other parts of musculoskeletal system (principal); R53.1 Weakness; R20.0 Anesthesia of skin; M54.2 Cervicalgia
CPT/HCPCS: 36415; 72156; 72157; 84207; A9576

== ENCOUNTER → 2021-08-07 | Outpatient (CLI) | payer OTHER | LOC: M LABSMTC 11:21 | PROVIDERS: ATTEND Anesthesiology | DX: Z11.52 Encounter for screening for COVID-19 (principal) ==

== ENCOUNTER → 2021-08-12 | Outpatient (CLI) | payer OTHER ==
[~2021-08-12] MED LIST changes: +BUPIVACAINE HCL 0.25% 10ML VIAL As Ordered ONE; +BUPIVACAINE HCL 0.25% 30ML VIAL As Ordered ONE; +CALC500C16 PO; +CLAR10CA3 PO; +FLUO10CA18 PO; +NORCO, ANEXSIA 5/325MG TABLET (HYDROcodone/ACETAMINOPHEN) As Ordered ONE; +OMEP10CASR PO; +ONDANSETRON 4 MG ORAL DISINTEGRATING TAB As Ordered ONE; +PENT500C PO; -PROHANCE 279.3MG/ML 15ML VIAL As Ordered ONE; +TRIAMCINOLONE ACETONIDE SUSP 40 MG/ML VIAL (J3301) As Ordered ONE; +VITA100020 PO; +VITMTA PO; +[UNRECOGNIZED DRUG - CODE] PO; +diazePAM 5MG TABLET As Ordered ONE
== END ==
LOC: M PAIN 08:30
PROVIDERS: ATTEND Anesthesiology
DX: M79.18 Myalgia, other site (principal); K21.9 Gastro-esophageal reflux disease without esophagitis; J45.909 Unspecified asthma, uncomplicated; K50.90 Crohn's disease, unspecified, without complications; M54.5 Low back pain; Z87.891 Personal history of nicotine dependence; Z79.899 Other long term (current) drug therapy; Z88.1 Allergy status to other antibiotic agents; Z88.5 Allergy status to narcotic agent
CPT/HCPCS: 20552; J3301; Q0162

== ENCOUNTER → 2021-08-14 | Outpatient (REF) | LOC: M EMP 13:55 | PROVIDERS: ATTEND Family Medicine | DX: Z11.52 Encounter for screening for COVID-19 (principal) ==

== ENCOUNTER → 2021-08-17 | Outpatient (REF) ==
[~2021-08-17] MED LIST changes: -BUPIVACAINE HCL 0.25% 10ML VIAL As Ordered ONE; -BUPIVACAINE HCL 0.25% 30ML VIAL As Ordered ONE; -NORCO, ANEXSIA 5/325MG TABLET (HYDROcodone/ACETAMINOPHEN) As Ordered ONE; -ONDANSETRON 4 MG ORAL DISINTEGRATING TAB As Ordered ONE; -TRIAMCINOLONE ACETONIDE SUSP 40 MG/ML VIAL (J3301) As Ordered ONE; -diazePAM 5MG TABLET As Ordered ONE
== END ==
LOC: M LABSMTC 10:47
PROVIDERS: ATTEND Pediatrics
DX: Z11.52 Encounter for screening for COVID-19 (principal)

== ENCOUNTER → 2021-10-10 | Outpatient (CLI) | payer OTHER | LOC: M PAIN 13:30 | PROVIDERS: ATTEND Anesthesiology | DX: G89.29 Other chronic pain (principal); M51.16 Intervertebral disc disorders with radiculopathy, lumbar region; K21.9 Gastro-esophageal reflux disease without esophagitis; J30.9 Allergic rhinitis, unspecified; J45.909 Unspecified asthma, uncomplicated; K50.90 Crohn's disease, unspecified, without complications; M47.26 Other spondylosis with radiculopathy, lumbar region; Z87.891 Personal history of nicotine dependence; Z88.1 Allergy status to other antibiotic agents; Z88.6 Allergy status to analgesic agent ==

== ENCOUNTER → 2021-10-31 | Outpatient (REF) | payer OTHER | LOC: M SFHCWAGY 13:53 | PROVIDERS: ATTEND Nurse Practitioner Women's Health | DX: Z12.4 Encounter for screening for malignant neoplasm of cervix (principal); Z01.419 Encounter for gynecological examination (general) (routine) without abnormal findings ==

== ENCOUNTER → 2021-10-31 | Outpatient (CLI) | payer OTHER | LOC: M WHC 07:33 | PROVIDERS: ATTEND Nurse Practitioner Women's Health | DX: Z12.31 Encounter for screening mammogram for malignant neoplasm of breast (principal) ==

== ENCOUNTER → 2021-11-01 | Outpatient (CLI) | payer OTHER ==
[~2021-11-01] MED LIST changes: +FLUO10CA16 PO; -FLUO10CA18 PO
--- NOTE | 2021-11-01 15:44 | REP ---
INDICATION: LEFT BREAST ADD VIEWS. COMPARISON: 10/31/2021 as well as other prior exams. TECHNIQUE: Magnification views left breast performed. FINDINGS: Tiny clustered pleomorphic microcalcifications are seen in the upper-outer quadrant of the left breast. These are indeterminate. Stereotactic biopsy is recommended. IMPRESSION: BIRADS/ACR category 4, suspicious. Clustered pleomorphic microcalcifications upper-outer quadrant left breast for which stereotactic biopsy is recommended. This mammogram was interpreted with the aid of an FDA-approved computer-aided detection system. The patient letter being requested is M4. RECOMMENDATION: Recommend stereotactic biopsy of pleomorphic microcalcifications upper-outer quadrant left breast. <Electronically signed by Joni Babin > 11/01/21 1707
== END ==
LOC: M WHC 14:47
PROVIDERS: ATTEND Nurse Practitioner Women's Health
DX: R92.8 Other abnormal and inconclusive findings on diagnostic imaging of breast (principal)
CPT/HCPCS: 77065; G0279

== ENCOUNTER → 2021-11-06 | Outpatient (CLI) | payer OTHER | LOC: M LABSMTC 12:16 | PROVIDERS: ATTEND Anesthesiology | DX: Z20.822 Contact with and (suspected) exposure to COVID-19 (principal) ==

== ENCOUNTER → 2021-11-07 | Outpatient (CLI) | payer OTHER ==
[~2021-11-07] MED LIST changes: -FLUO10CA16 PO; +FLUO10CA18 PO
[2021-11-07 17:38] VITALS: BP 110/70
== END ==
LOC: M WHCPRO 14:33
PROVIDERS: ATTEND Family Medicine
DX: D24.2 Benign neoplasm of left breast (principal); R92.8 Other abnormal and inconclusive findings on diagnostic imaging of breast

== ENCOUNTER → 2021-11-09 | Outpatient (REF) | LOC: M LABSMTC 09:55 | PROVIDERS: ATTEND Family Medicine | DX: Z11.52 Encounter for screening for COVID-19 (principal) ==

== ENCOUNTER → 2021-11-14 | Outpatient (CLI) | payer OTHER ==
[~2021-11-14] MED LIST changes: +FLUO10CA16 PO; -FLUO10CA18 PO
== END ==
LOC: M LABSMTC 09:49
PROVIDERS: ATTEND Anesthesiology
DX: Z11.52 Encounter for screening for COVID-19 (principal)

== ENCOUNTER → 2021-11-19 | Outpatient (CLI) | payer OTHER ==
[~2021-11-19] MED LIST changes: +ISOVUE-M 300 61% 15ML VIAL As Ordered ONE; +LIDOCAINE 1% SDV 30ML VIAL As Ordered ONE; +NORCO, ANEXSIA 5/325MG TABLET (HYDROcodone/ACETAMINOPHEN) As Ordered ONE; +ONDANSETRON 4 MG ORAL DISINTEGRATING TAB As Ordered ONE; +diazePAM 5MG TABLET As Ordered ONE; +methylPREDNISolone SUSP 40MG/ML 1ML VIAL (DEPO MEDROL) As Ordered ONE
--- NOTE | 2021-11-19 17:36 | REP ---
INDICATION: LUMBAR EPIDURAL STEROID INJECTION. COMPARISON: None. TECHNIQUE: Three intraoperative C-arm images FINDINGS: Lumbar anatomy, needle placement and contrast injection. IMPRESSION: Imaging consistent with lumbar epidural steroid injection. Fluoroscopy time of 11 seconds <Electronically signed by Rosemarie Cummings > 11/19/21 1421 <Electronically signed by Joni Babin > 11/19/21 0922
== END ==
LOC: M PAIN 11:20
PROVIDERS: ATTEND Anesthesiology
DX: M51.16 Intervertebral disc disorders with radiculopathy, lumbar region (principal); K21.9 Gastro-esophageal reflux disease without esophagitis; J45.909 Unspecified asthma, uncomplicated; K50.90 Crohn's disease, unspecified, without complications; M47.812 Spondylosis without myelopathy or radiculopathy, cervical region; Z87.891 Personal history of nicotine dependence; Z79.899 Other long term (current) drug therapy; Z88.1 Allergy status to other antibiotic agents; Z88.5 Allergy status to narcotic agent
CPT/HCPCS: 62323; J1030; Q0162; Q9967

== ENCOUNTER → 2021-12-09 | Outpatient (CLI) | payer OTHER ==
[~2021-12-09] MED LIST changes: -FLUO10CA16 PO; +FLUO10CA18 PO; -ISOVUE-M 300 61% 15ML VIAL As Ordered ONE; -LIDOCAINE 1% SDV 30ML VIAL As Ordered ONE; -NORCO, ANEXSIA 5/325MG TABLET (HYDROcodone/ACETAMINOPHEN) As Ordered ONE; -ONDANSETRON 4 MG ORAL DISINTEGRATING TAB As Ordered ONE; -diazePAM 5MG TABLET As Ordered ONE; -methylPREDNISolone SUSP 40MG/ML 1ML VIAL (DEPO MEDROL) As Ordered ONE
== END ==
LOC: M TMPAIN 15:15 → M PAIN 15:15
PROVIDERS: ATTEND Anesthesiology
DX: M51.16 Intervertebral disc disorders with radiculopathy, lumbar region (principal); G89.29 Other chronic pain; K21.9 Gastro-esophageal reflux disease without esophagitis; J45.909 Unspecified asthma, uncomplicated; Z87.891 Personal history of nicotine dependence; Z88.1 Allergy status to other antibiotic agents; Z88.5 Allergy status to narcotic agent; Z79.899 Other long term (current) drug therapy

== ENCOUNTER → 2022-07-04 | Outpatient (CLI) | payer OTHER ==
[~2022-07-04] MED LIST changes: +PROG100C23 PO; -[UNRECOGNIZED DRUG - CODE] PO
== END ==
LOC: M PAIN 09:15
PROVIDERS: ATTEND Anesthesiology
DX: M51.17 Intervertebral disc disorders with radiculopathy, lumbosacral region (principal); K21.9 Gastro-esophageal reflux disease without esophagitis; J45.909 Unspecified asthma, uncomplicated; K50.90 Crohn's disease, unspecified, without complications; G56.03 Carpal tunnel syndrome, bilateral upper limbs; M54.2 Cervicalgia; R53.83 Other fatigue; R53.81 Other malaise; Z87.891 Personal history of nicotine dependence; Z79.899 Other long term (current) drug therapy; Z88.1 Allergy status to other antibiotic agents; Z88.5 Allergy status to narcotic agent

== ENCOUNTER → 2022-07-14 | Outpatient (REF) | payer OTHER | LOC: M LAB REF 21:30 | PROVIDERS: ATTEND Physician Assistant | DX: R30.0 Dysuria (principal); N39.0 Urinary tract infection, site not specified ==

== ENCOUNTER → 2022-07-22 | Outpatient (CLI) | payer OTHER | LOC: M LABSMTC 10:05 | PROVIDERS: ATTEND Anesthesiology | DX: Z11.52 Encounter for screening for COVID-19 (principal) ==

== ENCOUNTER → 2022-07-24 | Outpatient (CLI) | payer OTHER ==
[~2022-07-24] MED LIST changes: +ISOVUE-M 300 61% 15ML VIAL As Ordered ONE; +LIDOCAINE 1% SDV 30ML VIAL As Ordered ONE; +NORCO, ANEXSIA 5/325MG TABLET (HYDROcodone/ACETAMINOPHEN) As Ordered ONE; +ONDANSETRON 4MG ORAL DISINTEGRATING TAB As Ordered ONE; +diazePAM 5MG TABLET As Ordered ONE; +methylPREDNISolone SUSP 40MG/ML 1ML VIAL (DEPO MEDROL) As Ordered ONE
== END ==
LOC: M PAIN 09:30
PROVIDERS: ATTEND Anesthesiology
DX: M51.17 Intervertebral disc disorders with radiculopathy, lumbosacral region (principal); G89.29 Other chronic pain; K21.9 Gastro-esophageal reflux disease without esophagitis; J45.909 Unspecified asthma, uncomplicated; Z87.891 Personal history of nicotine dependence; Z88.1 Allergy status to other antibiotic agents; Z88.5 Allergy status to narcotic agent; Z79.899 Other long term (current) drug therapy
CPT/HCPCS: 62323; J1030; Q9967

== ENCOUNTER → 2022-07-31 | Outpatient (CLI) | payer OTHER ==
[~2022-07-31] MED LIST changes: -ISOVUE-M 300 61% 15ML VIAL As Ordered ONE; -LIDOCAINE 1% SDV 30ML VIAL As Ordered ONE; -NORCO, ANEXSIA 5/325MG TABLET (HYDROcodone/ACETAMINOPHEN) As Ordered ONE; -ONDANSETRON 4MG ORAL DISINTEGRATING TAB As Ordered ONE; -diazePAM 5MG TABLET As Ordered ONE; -methylPREDNISolone SUSP 40MG/ML 1ML VIAL (DEPO MEDROL) As Ordered ONE
[2022-07-31 12:37] LABS: BASO # 0.1 10^3/uL (0.0-0.2); BASO % 0.8 % (0.0-1.0); EOS # 0.2 10^3/uL (0.0-0.5); EOS % 2.8 % (0.0-3.0); HEMATOCRIT 41.5 % (36.0-47.0); HEMOGLOBIN 13.8 g/dl (12.0-15.5); LYMPH # 2.5 10^3/uL (1.5-5.0); LYMPH % 40.4 % (24.0-44.0); MEAN CORPUSCULAR HEMOGLOBIN 32.1 pg (27.0-33.0); MEAN CORPUSCULAR HGB CONC 33.3 g/dl (32.0-36.5); MEAN CORPUSCULAR VOLUME 96.5 fl (80.0-96.0); MONO # 0.5 10^3/uL (0.0-0.8); MONO % 7.8 % (2.0-8.0); NEUTROPHILS # 2.9 10^3/uL (1.5-8.5); PLATELET COUNT, AUTOMATED 233 10^3/uL (150-450); WHITE BLOOD COUNT 6.1 10^3/uL (4.0-10.0)
[2022-07-31 13:20] LABS: ALT/SGPT 179 U/L (12-78); BILIRUBIN,TOTAL 0.4 MG/DL (0.2-1.0); BLOOD UREA NITROGEN 12 MG/DL (7-18); CALCIUM LEVEL 9.6 MG/DL (8.5-10.1); CARBON DIOXIDE LEVEL 28 MEQ/L (21-32); CHLORIDE LEVEL 104 MEQ/L (98-107); CHOLESTEROL LEVEL 223 MG/DL (<200); CHOLESTEROL RISK RATIO 2.719 (<5); CREATININE FOR GFR 0.71 MG/DL (0.55-1.30); FREE T4 0.86 NG/DL (0.76-1.46); GLOMERULAR FILTRATION RATE > 60.0 (>51); GLUCOSE, FASTING 97 MG/DL (70-100); HDL CHOLESTEROL 82 MG/DL (>40); LDL CHOLESTEROL 134 MG/DL (<100); NON-HDL-C 141 MG/DL; POTASSIUM SERUM 3.9 MEQ/L (3.5-5.1); SODIUM LEVEL 139 MEQ/L (136-145); TRIGLYCERIDES LEVEL 35 MG/DL (<150)
== END ==
LOC: M LAB 11:31
PROVIDERS: ATTEND Family Medicine
DX: Z13.0 Encounter for screening for diseases of the blood and blood-forming organs and certain disorders involving the immune mechanism (principal); R39.15 Urgency of urination; Z13.29 Encounter for screening for other suspected endocrine disorder; Z13.220 Encounter for screening for lipoid disorders; E55.9 Vitamin D deficiency, unspecified

== ENCOUNTER → 2022-07-31 | Outpatient (CLI) | payer OTHER ==
[2022-07-31 12:37] LABS: HEMOGLOBIN 13.8 g/dl (12.0-15.5); MEAN CORPUSCULAR HGB CONC 32.9 g/dl (32.0-36.5); MEAN CORPUSCULAR VOLUME 97.4 fl (80.0-96.0); PLATELET COUNT, AUTOMATED 242 10^3/uL (150-450); RED BLOOD COUNT 4.31 10^6/uL (4.00-5.40); WHITE BLOOD COUNT 6.3 10^3/uL (4.0-10.0)
[2022-07-31 13:05] LABS: ERYTHROCYTE SEDIMENTATION RATE 5 mm/hr (0-30)
[2022-07-31 13:20] LABS: ALT/SGPT 183 U/L (12-78); BILIRUBIN,TOTAL 0.4 MG/DL (0.2-1.0); BLOOD UREA NITROGEN 12 MG/DL (7-18); CALCIUM LEVEL 9.6 MG/DL (8.5-10.1); CARBON DIOXIDE LEVEL 28 MEQ/L (21-32); CHLORIDE LEVEL 106 MEQ/L (98-107); GLOMERULAR FILTRATION RATE > 60.0 (>51); GLUCOSE, FASTING 95 MG/DL (70-100); POTASSIUM SERUM 3.9 MEQ/L (3.5-5.1); SODIUM LEVEL 140 MEQ/L (136-145); TOTAL PROTEIN 6.9 GM/DL (6.4-8.2)
== END ==
LOC: M RAD 11:37
PROVIDERS: ATTEND Nurse Practitioner Family
DX: K50.00 Crohn's disease of small intestine without complications (principal); R10.84 Generalized abdominal pain

== ENCOUNTER → 2022-08-13 | Outpatient (CLI) | payer OTHER ==
[2022-08-13 10:38] LABS: INR 0.83; PROTHROMBIN TIME 11.8 SECONDS (12.7-14.5)
[2022-08-13 10:39] LABS: PARTIAL THROMBOPLASTIN TIME 29.6 SECONDS (25.9-37.0)
[2022-08-13 11:40] LABS: ALBUMIN 4.4 GM/DL (3.2-5.2); ALT/SGPT 78 U/L (12-78); BILIRUBIN,DIRECT 0.2 MG/DL (0.0-0.2); BILIRUBIN,TOTAL 0.4 MG/DL (0.2-1.0); FERRITIN 240 NG/ML (8-252); HEPATITIS B SURFACE ANTIBODY NEGATIVE (POSITIVE); HEPATITIS B SURFACE ANTIGEN NEGATIVE (NEGATIVE); IRON (FE) 103 UG/DL (50-170); TOTAL IRON BINDING CAPACITY 286 UG/DL (250-450); TOTAL PROTEIN 7.7 GM/DL (6.4-8.2)
[2022-08-13 12:05] LABS: HEPATITIS C VIRUS ABY INDEX < 0.0 INDEX (<0.8)
[2022-08-14 16:08] LABS: ALPHA 1 ANTITRYPSIN 155 mg/dL (101-187); ANTI-MITOCHONDRIAL ANTIBODY <20.0 Units (0.0-20.0); ANTINUCLEAR ANTIBODIES DIRECT Negative (Negative); CERULOPLASMIN 37.7 mg/dL (19.0-39.0); HEPATITIS A IgG TOTAL Negative (Negative); LIVER-KIDNEY MICROSOMAL ABY <20.1 Units (0.0-20.0); TISSUE TRANSGLUTAMINASE IgA <2 U/mL (0-3)
== END ==
LOC: M PLALAB 08:52
PROVIDERS: ATTEND Nurse Practitioner Family
DX: R94.5 Abnormal results of liver function studies (principal)

== ENCOUNTER → 2022-08-13 | Outpatient (CLI) | payer OTHER | LOC: M WHC 08:40 | PROVIDERS: ATTEND Nurse Practitioner Family | DX: R94.5 Abnormal results of liver function studies (principal) ==

== ENCOUNTER → 2022-08-18 | Outpatient (REF) | payer OTHER | LOC: M SMT 13:08 | PROVIDERS: ATTEND Urology | DX: N39.0 Urinary tract infection, site not specified (principal) ==

== ENCOUNTER → 2022-08-29 | Outpatient (CLI) | payer OTHER | LOC: M PAIN 15:30 → M TMPAIN 15:30 | PROVIDERS: ATTEND Anesthesiology | DX: M54.50 Low back pain, unspecified (principal); M51.16 Intervertebral disc disorders with radiculopathy, lumbar region; G89.29 Other chronic pain; K21.9 Gastro-esophageal reflux disease without esophagitis; J45.909 Unspecified asthma, uncomplicated; Z87.891 Personal history of nicotine dependence; Z88.1 Allergy status to other antibiotic agents; Z88.5 Allergy status to narcotic agent; Z79.899 Other long term (current) drug therapy ==

== ENCOUNTER → 2023-07-02 | Outpatient (CLI) | payer OTHER ==
[~2023-07-02] MED LIST changes: -PROG100C23 PO; +[UNRECOGNIZED DRUG - CODE] PO
[2023-07-02 10:26] LABS: BASO # 0.1 10^3/uL (0.0-0.2); BASO % 1.1 % (0.0-1.0); EOS # 0.1 10^3/uL (0.0-0.5); EOS % 2.6 % (0.0-3.0); HEMOGLOBIN 13.8 g/dl (12.0-15.5); LYMPH # 2.2 10^3/uL (1.5-5.0); LYMPH % 39.5 % (24.0-44.0); MEAN CORPUSCULAR HEMOGLOBIN 32.4 pg (27.0-33.0); MEAN CORPUSCULAR HGB CONC 32.9 g/dl (32.0-36.5); MEAN CORPUSCULAR VOLUME 98.6 fl (80.0-96.0); MONO # 0.4 10^3/uL (0.0-0.8); MONO % 7.7 % (2.0-8.0); NEUTROPHILS # 2.7 10^3/uL (1.5-8.5); NEUTROPHILS % 48.9 % (36.0-66.0); PLATELET COUNT, AUTOMATED 260 10^3/uL (150-450); RED BLOOD COUNT 4.26 10^6/uL (4.00-5.40); WHITE BLOOD COUNT 5.4 10^3/uL (4.0-10.0)
[2023-07-02 10:44] LABS: ERYTHROCYTE SEDIMENTATION RATE 11 mm/hr (0-30)
[2023-07-02 10:56] LABS: C REACTIVE PROTEIN QUANTITATIV < 0.40 MG/DL (<1.0)
[2023-07-02 10:57] LABS: RHEUMATOID FACTOR QUANT 4.6 IU/ML (<14)
[2023-07-02 10:58] LABS: FREE T4 0.87 NG/DL (0.89-1.76); THYROID STIMULATING HORMONE 1.787 uIU/ML (0.55-4.78)
[2023-07-02 11:01] LABS: THYROID PEROXIDASE ANTIBODY < 28.0 U/ML (<60.0)
[2023-07-06 12:07] LABS: ANA (HEP2) Negative (.); CYCLIC CITRULLINATED PEPTIDE 6 units (0-19)
== END ==
LOC: M LAB 09:42
PROVIDERS: ATTEND Family Medicine
DX: N39.0 Urinary tract infection, site not specified (principal)

== ENCOUNTER → 2023-07-02 | Outpatient (CLI) | payer OTHER ==
[2023-07-02 10:25] LABS: HEMATOCRIT 41.8 % (36.0-47.0); HEMOGLOBIN 13.5 g/dl (12.0-15.5); MEAN CORPUSCULAR HEMOGLOBIN 31.6 pg (27.0-33.0); MEAN CORPUSCULAR HGB CONC 32.3 g/dl (32.0-36.5); MEAN CORPUSCULAR VOLUME 97.9 fl (80.0-96.0); PLATELET COUNT, AUTOMATED 259 10^3/uL (150-450); RED BLOOD COUNT 4.27 10^6/uL (4.00-5.40); WHITE BLOOD COUNT 5.4 10^3/uL (4.0-10.0)
[2023-07-02 10:44] LABS: ERYTHROCYTE SEDIMENTATION RATE 8 mm/hr (0-30)
[2023-07-02 10:55] LABS: ALBUMIN 4.2 G/DL (3.2-5.2); ALKALINE PHOSPHATASE 83 U/L (46-116); ALT/SGPT 88 U/L (7.0-40); AST/SGOT 43 U/L (<34); BILIRUBIN,TOTAL 0.3 MG/DL (0.3-1.2); BLOOD UREA NITROGEN 16 MG/DL (9-23); C REACTIVE PROTEIN QUANTITATIV < 0.40 MG/DL (<1.0); CALCIUM LEVEL 9.6 MG/DL (8.5-10.1); CARBON DIOXIDE LEVEL 29 MMOL/L (20-31); CHLORIDE LEVEL 106 MMOL/L (98-107); CREATININE FOR GFR 0.63 MG/DL (0.55-1.30); GLOMERULAR FILTRATION RATE > 60.0 (>51); GLUCOSE, FASTING 120 MG/DL (60-100); POTASSIUM SERUM 4.2 MMOL/L (3.5-5.1); SODIUM LEVEL 142 MMOL/L (136-145); TOTAL PROTEIN 6.9 G/DL (5.7-8.2)
== END ==
LOC: M LAB 09:44
PROVIDERS: ATTEND Internal Medicine Gastroenterology
DX: K50.00 Crohn's disease of small intestine without complications (principal); R94.8 Abnormal results of function studies of other organs and systems; K21.9 Gastro-esophageal reflux disease without esophagitis; K80.20 Calculus of gallbladder without cholecystitis without obstruction

== ENCOUNTER → 2023-07-23 | Outpatient (REF) | payer OTHER ==
[2023-07-23 17:24] LABS: APPEARANCE, URINE CLEAR (CLEAR); BACTERIA, URINE AUTO NEGATIVE (NEGATIVE); BILIRUBIN, URINE AUTO NEGATIVE (NEGATIVE); BLOOD, URINE BLOOD NEGATIVE (NEGATIVE); COLOR, URINE STRAW (YELLOW); GLUCOSE, URINE (UA) AUTO NEGATIVE (NEGATIVE); KETONE, URINE AUTO NEGATIVE (NEGATIVE); LEUKOCYTE ESTERASE, URINE AUTO NEGATIVE (NEGATIVE); NITRITE, URINE AUTO NEGATIVE (NEGATIVE); PROTEIN, URINE AUTO NEGATIVE (NEGATIVE); RBC, URINE AUTO 0 /HPF (0-3); SPECIFIC GRAVITY URINE AUTO 1.004 (1.002-1.035); SQUAMOUS EPITHELIAL CELL UR AU 0 /HPF (0-6); UROBILINOGEN, URINE AUTO 0.2 mg/dL (0.0-2.0); WBC, URINE AUTO 1 /HPF (0-3)
== END ==
LOC: M SMT 16:42
PROVIDERS: ATTEND Urology
DX: N39.0 Urinary tract infection, site not specified (principal)
CPT/HCPCS: 51798; 81001; 87086; G0463

== ENCOUNTER → 2023-07-30 | Outpatient (CLI) | payer OTHER | LOC: M WHC 13:29 | PROVIDERS: ATTEND Family Medicine | DX: Z12.31 Encounter for screening mammogram for malignant neoplasm of breast (principal); Z13.820 Encounter for screening for osteoporosis; M85.851 Other specified disorders of bone density and structure, right thigh ==

== ENCOUNTER → 2024-04-23 | Outpatient (CLI) | payer OTHER ==
[~2024-04-23] MED LIST changes: +FLUO-290 PO; -FLUO10CA18 PO
== END ==
LOC: M RAD 11:14
PROVIDERS: ATTEND Internal Medicine Pulmonary Disease
DX: J45.40 Moderate persistent asthma, uncomplicated (principal)

== ENCOUNTER → 2024-05-31 | Outpatient (CLI) | payer OTHER | LOC: M RAD 08:22 | PROVIDERS: ATTEND Internal Medicine Pulmonary Disease | DX: J45.40 Moderate persistent asthma, uncomplicated (principal) ==

== ENCOUNTER 2024-07-26 09:29 | Day surgery (SDC) | payer OTHER ==
[~2024-07-26] VITALS: Ht 167.6 cm; Wt 61.5 kg
[~2024-07-26 09:29] MED LIST changes: +ESTR1TAB PO; +THERTAB52 PO; +VIBE75TA PO; +VITA-16 PO; +VITA-243 PO
[2024-07-26] MEDS ORDERED: MIDAZOLAM INJ 2MG/2ML VIAL As Ordered ONE (09:45)
[2024-07-26] MEDS ORDERED: fentaNYL 100 MCG/2 ML INJECTION As Ordered ONE (09:47)
[2024-07-26] MEDS ORDERED: LIDOCAINE 1% SDV 5ML VIAL SC PRN (09:55)
[2024-07-26] MEDS ORDERED: LIDOCAINE 2% 100MG/5ML SDV (FOR ANES.) As Ordered ONE (10:10)
[2024-07-26] MEDS: LR 1,000 ML IV SCH (10:20)
[2024-07-26] MEDS: ceFAZolin SOD 2 GM in IV 1 EA IV ONE (10:43)
[2024-07-26] MEDS ORDERED: propofoL 200 MG/20 ML VIAL As Ordered ONE (11:00)
[2024-07-26] MEDS ORDERED: ONDANSETRON 4MG 2ML VIAL As Ordered ONE (11:00)
[2024-07-26] MEDS ORDERED: KETOROLAC 60MG 2ML VIAL As Ordered ONE (11:00)
[2024-07-26] MEDS ORDERED: ePHEDrine SULFATE 25 MG/5 ML(5MG/ML) SYRINGE As Ordered ONE (11:33)
[2024-07-26] MEDS ORDERED: ACETAMINOPHEN 1000MG 100ML IV BAG As Ordered ONE (12:04)
[2024-07-26] MEDS ORDERED: LR 1,000 ML IV SCH (13:00)
[2024-07-26] MEDS ORDERED: HYDROMORPHONE HCL 0.5 MG/ 0.5 ML SYRINGE IV PRN (13:00)
[2024-07-26] MEDS ORDERED: oxyCODONE 5MG TAB PO PRN (13:00)
[2024-07-26] MEDS ORDERED: ONDANSETRON 4MG 2ML VIAL IV PRN (13:00)
[2024-07-26] MEDS ORDERED: fentaNYL 100 MCG/2 ML INJECTION IV PRN (13:00)
[2024-07-26 14:40] VITALS: BP 120/80; TEMP 97.2; O2SAT 98
== END 2024-07-26 14:49 | disposition home or self-care (01) ==
LOC: M SDC 09:29
PROVIDERS: ATTEND Surgery
DX: D17.21 Benign lipomatous neoplasm of skin and subcutaneous tissue of right arm (principal); D17.22 Benign lipomatous neoplasm of skin and subcutaneous tissue of left arm; D17.23 Benign lipomatous neoplasm of skin and subcutaneous tissue of right leg; D17.24 Benign lipomatous neoplasm of skin and subcutaneous tissue of left leg; D17.1 Benign lipomatous neoplasm of skin and subcutaneous tissue of trunk; Z88.5 Allergy status to narcotic agent; Z88.1 Allergy status to other antibiotic agents; Z79.899 Other long term (current) drug therapy; Z87.891 Personal history of nicotine dependence
CPT/HCPCS: 11401; 11404; 88304; 93005; C9290; J0131; J0665; J0690; J1100; J1885; J2250; J2405; J3010